=== PATIENT | female | born 1995 | race Caucasian/White ===

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

== ENCOUNTER 2017-03-07 16:17 | Emergency (ER) | payer OTHER ==
[2017-03-07 16:23] VITALS: BP 139/80; PULSE 87; RESP 20; TEMP 99.2
[2017-03-07] MEDS ORDERED: HYDROcodone/APAP 5-325MG 1 EACH TAB PO STA (16:29)
--- NOTE | 2017-03-07 16:42 | XR ---
EXAMINATION TYPE: XR finger LT DATE OF EXAM: 03/07/2017 COMPARISON: NONE HISTORY: Pain TECHNIQUE: 3 views FINDINGS: There is soft tissue swelling around the PIP joint. I see no fracture nor dislocation. IMPRESSION: Soft tissue swelling around the PIP joint of the ring finger. No fracture seen.
--- NOTE | 2017-03-07 16:59 | ED ---
Upper Extremity HPI - General Stated Complaint: Finger Injury Time Seen by Provider: 03/07/17 16:20 Source: patient Mode of arrival: ambulatory Limitations: no limitations - History of Present Illness Initial Comments: 22-year-old female patient presented to the emergency department today for evaluation of pain to the left ring finger. Patient states that around 11 this morning she got her hand stuck in the car door. She states since that she's been having swelling and pain to the finger. She states she feels some minor numbness to the tip of the finger. She states she did take Tylenol and Ultram which did not help her pain. She is currently rating her pain at a 8 out of 10 on the pain scale. She denies any other injuries. Patient denies any headache, neck pain, back pain, chest pain, shortness of breath, dizziness, weakness, abdominal pain, nausea, vomiting, or difficulties with bowel movements or urination. - Related Data Home Medications Medication Instructions Recorded Confirmed Albuterol Inhaler [Ventolin 1 - 2 puff INHALATION RT-Q6H PRN 01/07/15 03/07/17 Inhaler] traMADol HCL [Ultram] 50 mg PO Q6HR PRN 06/29/15 03/07/17 Naproxen 500 mg PO Q12HR PRN 01/07/16 03/07/17 Allergies Allergy/AdvReac Type Severity Reaction Status Date / Time codeine Allergy Unknown Verified 03/07/17 16:23 hydrocodone Allergy Vomiting Verified 03/07/17 16:41 fluticasone [From Flonase] AdvReac Unknown Verified 03/07/17 16:23 Review of Systems ROS Statement: Those systems with pertinent positive or pertinent negative responses have been documented in the HPI. ROS Other: All systems not noted in ROS Statement are negative. Past Medical History Past Medical History: Asthma Additional Past Medical History / Comment(s): migraines History of Any Multi-Drug Resistant Organisms: None Reported Past Surgical History: No Surgical Hx Reported Past Psychological History: Anxiety, Depression, PTSD Smoking Status: Never smoker Past Alcohol Use History: None Reported Past Drug Use History: None Reported General Exam Limitations: no limitations General appearance: alert, in no apparent distress, other (this is a well- developed, well-nourished, obese female patient in no acute distress. Vital signs upon presentation are temperature 99.2F, pulse 87, respirations 20, blood pressure 139/80, pulse ox 98% on room air.) Respiratory exam: Present: normal lung sounds bilaterally. Absent: respiratory distress, wheezes, rales, rhonchi, stridor Cardiovascular Exam: Present: regular rate, normal rhythm, normal heart sounds. Absent: systolic murmur, diastolic murmur, rubs, gallop, clicks Extremities exam: Present: full ROM, tenderness (left ring finger does exhibit swelling over the proximal phalanx, ecchymosis noted and a small abrasion to the lateral distal phalanx. Cap refills less than 3 seconds. Radial pulses 2+ and equal bilaterally.), normal capillary refill. Absent: pedal edema, joint swelling, calf tenderness Neurological exam: Present: alert, oriented X3, CN II-XII intact Psychiatric exam: Present: normal affect, normal mood Skin exam: Present: warm, dry, intact, normal color. Absent: rash Course Vital Signs 03/07/17 16:21 Temperature 99.2 F Pulse Rate 87 Respiratory 20 Rate Blood Pressure 139/80 O2 Sat by Pulse 98 Oximetry Medical Decision Making - Medical Decision Making 22-year-old female patient percents to the emergency department today for evaluation of injury to the left ring finger. Physical examination did reveal soft tissue swelling over the proximal phalanx. X-ray was obtained and showed no acute fracture or dislocation. Patient was offered a [place] for pain control here in the department, she refused. Patient was instructed to take Tylenol Motrin for pain control. She is instructed to apply ice and keep the hand elevated. She is instructed to follow-up with her primary care physician for recheck in 1-2 days. She is instructed to return here immediately for any new, worsening, or concerning symptoms. She verbalizes understanding and agrees with this plan. - Radiology Data Radiology results: report reviewed, image reviewed 3 views of the left ring finger shows soft tissue swelling around the PIP joint. I see no fracture nor dislocation. Impression by Dr. Sheldon shows soft tissue swelling around the PIP joint of the ring finger. No fracture seen. Disposition Clinical Impression: Finger contusion Disposition: HOME SELF-CARE Condition: Good Instructions: Contusion in Adults (ED) Additional Instructions: Rest, ice, elevate the finger. Continue taking ibuprofen and Tylenol for pain control. Follow-up with your primary care physician for recheck in 1-2 days. Return here immediately for any new, worsening, or concerning symptoms. Referrals: Marc Calderon DO [Primary Care Provider] - 1-2 days Time of Disposition: 17:00
== END 2017-03-07 17:08 | disposition home or self-care (01) ==
LOC: EC 16:17
DX: S60.042A Contusion of left ring finger without damage to nail, initial encounter (principal); E66.9 Obesity, unspecified; Z88.5 Allergy status to narcotic agent; Z68.41 Body mass index [BMI] 40.0-44.9, adult; Z88.8 Allergy status to other drugs, medicaments and biological substances; W22.8XXA Striking against or struck by other objects, initial encounter
CPT/HCPCS: 99283

== ENCOUNTER → 2017-04-08 | Outpatient (CLI) | payer OTHER ==
--- NOTE | 2017-04-08 12:30 | PN ---
PROGRESS NOTE DATE OF SERVICE: 04/08/2017 A 22-year-old lady who has been re-evaluated in the [facility] for possible obstructive sleep apnea-hypopnea syndrome. I saw patient about one year ago. At that time, she was recommended to proceed with the sleep study, but because of family issues at that time, she was not able to do it. Presently, her sleep schedule from around 10:30 or 11 pm until 6:45 - 7:45 am. She still snores, but possibly slightly less than about 1 year ago. She wakes up several times from sleep with nocturia. [place] Sleepiness Scale is 8. Patient continued to have problem with the memory and several trials for the last year was not successful. MEDICATIONS: Lamotrigine, Nexplanon implant, Nytol, tramadol, naproxen. PHYSICAL EXAM: A 22-year-old lady without distress. BP 152/84, HR 98, RR 16, height 5, 9- 1/2, weight 331, BMI 48, temp 98, oxygen saturation at room air 98%. OROPHARYNX: Low position of soft palate. ABDOMEN: Obese. Neck Supple, no JVD. Thyroid is not palpable. LUNGS Clear to percussion and to auscultation. Good air exchange. No wheezing or rhonchi. HEART S1, S2 regular. No murmurs, gallops, or rubs. EXTREMITIES No clubbing or cyanosis. 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 Cranial nerves 2 to 7 intact. There is no fasciculation or atrophy. noted. No focal deficits observed. ASSESSMENT: 1. Snoring, multiple awakenings from sleep with nocturia, low position of soft palate, obesity, obstructive sleep apnea-hypopnea syndrome. 2. Migraines. 3. Memory problems. 4. Hypertension in the office today. 5. History of bilateral hip dysplasia. 6. History of asthma. PLAN: 1. Polysomnogram for evaluation of patient's breathing during the sleep. 2. CPAP titration if sleep study will be positive for obstructive sleep apnea-hypopnea syndrome. 3. Aggressive losing weight program. 4. Sleep hygiene with regular time in bed for at least 7-1/2 - 8 hours. 5. No driving if feeling any sleepiness. Thank you very much for allowing me to participate in the management of your patient. Sincerely, Immanuel Brar MD, PhD, FAASM Diplomat of [place] [employer] [place] [employer] Electrical Technology Instructor of [facility] [place] MMODL / UNAN: [id number] /
== END | disposition home or self-care (01) ==
LOC: SLEEP 10:58
PROVIDERS: ATTEND Internal Medicine
DX: G47.33 Obstructive sleep apnea (adult) (pediatric) (principal)

== ENCOUNTER → 2017-05-20 | Outpatient (CLI) | payer OTHER ==
--- NOTE | 2017-05-20 17:04 | PN ---
PROGRESS NOTE DATE OF SERVICE: 05/20/2017 22-year-old lady who has been followed in Sleep Center to discuss results of polysomnogram and plan of the treatment. I discussed results of polysomnogram with the patient in details. She has mild abnormalities of respiration. Apnea-hypopnea index 10.0, in REM sleep AHI significantly high 24.8. At the same time she denied any significant amount of awakenings from sleep at the present time or any significant excessive daytime sleepiness. [place] Sleepiness Scale is 8. MEDICATIONS: Lamotrigine, , Medrol, tramadol, naproxen. PHYSICAL EXAM: GENERAL Patient in no distress. VITAL SIGNS BP 119/80, HR 75, RR 16, oxygen saturation at room air 100%, temperature 98.8. HEENT PERRLA, EOMI, evaluation of oropharynx showed moderately low position of soft palate. NECK Supple, no JVD. Thyroid is not palpable. LUNGS Clear to percussion and to auscultation. Good air exchange. No wheezing or rhonchi. HEART S1, S2 regular. No murmurs, gallops, or rubs. ABDOMEN Obese. Soft and nontender. Bowel sounds are present. No organomegaly appreciated. EXTREMITIES No clubbing or cyanosis. 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 Cranial nerves 2 to 7 intact. There is no fasciculation or atrophy. noted. No focal deficits observed. IMPRESSION: 1. Mild obstructive sleep apnea-hypopnea syndrome. 2. Migraines. 3. History of asthma. 4. Memory problems. 5. History of bilateral hip dysplasia. PLAN: 1. From my view, patient should have treatment with CPAP, but is not indicated following present recommendations. The patient does not have any cardiac problems or mood disorder. Presence of migraine is not considered to be indication for treatment of mild obstructive sleep apnea, although for many patients treatment with CPAP is helpful. Also patient has some memory problems and I think that again treatment with CPAP will be useful for her. At the same time, she prefers not to start treatment with CPAP. 2. Aggressive losing weight programs. 3. Sleep hygiene with regular time in bed for at least 8 hours. 4. Preferable position during the sleep on the side. 5. No driving if feeling sleepiness. 6. Follow-up visit in 1 year or earlier if patient feels necessary. Thank you very much for allowing me to participate in management of your patient. Sincerely, Immanuel Brar MD, PhD, FAASM Diplomat of [place] [employer] [place] [employer] Machining Supervisor of [facility] [place] MMDARRON / NORA: [id number] /
== END | disposition home or self-care (01) ==
LOC: SLEEP 15:39
PROVIDERS: ATTEND Internal Medicine
DX: G47.33 Obstructive sleep apnea (adult) (pediatric) (principal); R41.3 Other amnesia; G43.909 Migraine, unspecified, not intractable, without status migrainosus; J45.909 Unspecified asthma, uncomplicated; Z79.899 Other long term (current) drug therapy; Z79.891 Long term (current) use of opiate analgesic; Z79.52 Long term (current) use of systemic steroids; Z87.39 Personal history of other diseases of the musculoskeletal system and connective tissue

== ENCOUNTER 2017-08-05 19:39 | Emergency (ER) | payer OTHER ==
[2017-08-05] MEDS ORDERED: METOCLOPRAMIDE 5 MG/ML 2 ML VIAL IVP STA (21:17)
[2017-08-05] MEDS ORDERED: diphenhydrAMINE 50 MG/ML 1 ML VIAL IVP STA (21:17)
[2017-08-05] MEDS ORDERED: SODIUM CHLORIDE 0.9% 500 ML IV STA (21:17)
[2017-08-05] MEDS ORDERED: KETOROLAC 30 MG/ML 1 ML VIAL IVP STA (21:17)
--- NOTE | 2017-08-05 21:31 | ED ---
Headache HPI - General Chief Complaint: Headache Stated Complaint: migraine Time Seen by Provider: 08/05/17 20:59 Mode of arrival: ambulatory Limitations: no limitations - History of Present Illness Initial Comments: This patient is a 22-year-old woman who presents to be evaluated for headache. She states that she has been getting headaches for approximately 3 years and that she has been seen by Dr. Jewell Freeman from neurology and also the [facility]. She has had workup that included 2 previous lumbar punctures that she states not eliminated pseudotumor cerebri and other conditions. She states that today's headache came on between 1 and 2 PM. She was at rest at the time and the headache gradually built up. She states that she tried her home medications around 3 PM but they didn't help much. She indicates that the headache is similar to her usual headaches though she does have nausea and vomiting associated with this one. She has not had any neurologic symptoms. She does not have neck pain or stiffness. No fever or chills. MD Complaint: headache Onset/Timin -: hour(s) Onset Description: gradual Location: left, temporal Severity: severe Quality: aching Consistency: constant Improves With: nothing Worsens With: none Context: occurred at rest Associated Symptoms: nausea, vomiting Treatments Prior to Arrival: prescription analgesic (Tramadol), other (Naproxen) - Related Data Home Medications Medication Instructions Recorded Confirmed traMADol HCL [Ultram] 50 mg PO Q6HR PRN 06/29/15 08/05/17 Naproxen 500 mg PO Q12HR PRN 01/07/16 08/05/17 Nadolol [Corgard] 40 mg PO DAILY 08/05/17 08/05/17 Phentermine HCl [Adipex-P] 18.75 mg PO QAM 08/05/17 08/05/17 lamoTRIgine [LaMICtal] 25 mg PO HS 08/05/17 08/05/17 Allergies Allergy/AdvReac Type Severity Reaction Status Date / Time codeine Allergy Unknown Verified 08/05/17 20:49 hydrocodone Allergy Vomiting Verified 08/05/17 20:49 fluticasone [From Flonase] AdvReac Unknown Verified 08/05/17 20:49 Review of Systems ROS Statement: Those systems with pertinent positive or pertinent negative responses have been documented in the HPI. ROS Other: All systems not noted in ROS Statement are negative. Constitutional: Denies: fever, chills, weakness Eyes: Denies: eye pain, vision change ENT: Denies: ear pain, hearing loss, congestion Respiratory: Denies: cough Gastrointestinal: Reports: nausea, vomiting Genitourinary: Denies: dysuria Musculoskeletal: Denies: back pain Skin: Denies: rash Neurological: Reports: headache. Denies: weakness, numbness, confusion, abnormal gait Past Medical History Past Medical History: Asthma Additional Past Medical History / Comment(s): migraines History of Any Multi-Drug Resistant Organisms: None Reported Past Surgical History: No Surgical Hx Reported Past Psychological History: Anxiety, Depression, PTSD Smoking Status: Never smoker Past Alcohol Use History: None Reported Past Drug Use History: None Reported General Exam Limitations: no limitations General appearance: alert, in no apparent distress, obese Head exam: Present: atraumatic, normocephalic Eye exam: Present: normal appearance, PERRL, EOMI. Absent: scleral icterus, conjunctival injection ENT exam: Present: normal oropharynx, mucous membranes moist, TM's normal bilaterally, normal external ear exam Neck exam: Present: normal inspection, full ROM. Absent: meningismus Neurological exam: Present: alert, oriented X3, CN II-XII intact. Absent: motor sensory deficit Skin exam: Present: warm, dry, intact, normal color. Absent: rash Course Vital Signs 08/05/17 08/05/17 19:51 22:45 Temperature 97.4 F L 97.9 F Pulse Rate 67 82 Respiratory 20 18 Rate Blood Pressure 133/82 125/81 O2 Sat by Pulse 99 98 Oximetry Disposition Clinical Impression: Headache Disposition: HOME SELF-CARE Condition: Good Instructions: Acute Headache (ED) Is patient prescribed a controlled substance at d/c from ED?: No Referrals: Marc Calderon DO [Primary Care Provider] - 1-2 days
[2017-08-05 22:46] VITALS: BP 125/81; PULSE 82; RESP 18; TEMP 97.9
== END 2017-08-05 22:45 | disposition home or self-care (01) ==
LOC: EC 19:39
DX: R51 Headache (principal); R11.2 Nausea with vomiting, unspecified; F32.9 Major depressive disorder, single episode, unspecified; F41.9 Anxiety disorder, unspecified; F43.10 Post-traumatic stress disorder, unspecified; Z79.899 Other long term (current) drug therapy; Z88.5 Allergy status to narcotic agent; Z88.8 Allergy status to other drugs, medicaments and biological substances
CPT/HCPCS: 99283; 96374; 96375 ×2; 96361; J1200; J2765; J1885

== ENCOUNTER → 2017-10-23 | Outpatient (CLI) | payer OTHER ==
--- NOTE | 2017-10-23 14:17 | XR ---
EXAMINATION TYPE: XR shoulder complete LT DATE OF EXAM: 10/23/2017 CLINICAL HISTORY: Left shoulder pain TECHNIQUE: Three views of the left shoulder are obtained. COMPARISON: None. FINDINGS: There is no acute fracture/dislocation evident in the left shoulder. The acromioclavicula r and glenohumeral joint spaces appear within normal limits. The visualized ribs are intact and unre markable. There is a suspected small joint effusion seen cranial and lateral to the left shoulder on the frontal and internal rotation views. IMPRESSION: Suspect a small joint effusion with no acute fracture or dislocation in the left shoulder .
== END | disposition home or self-care (01) ==
LOC: RADXRMAIN 10:52
PROVIDERS: ATTEND Physician Assistant
DX: M25.512 Pain in left shoulder (principal)

== ENCOUNTER 2018-05-05 19:00 | Emergency (ER) | payer OTHER ==
[2018-05-05 19:21] VITALS: BP 136/87; PULSE 85; RESP 19; TEMP 99
[2018-05-05] MEDS ORDERED: IBUPROFEN 600 MG TAB PO STA (19:44)
[2018-05-05] MEDS ORDERED: ACETAMINOPHEN TAB 500 MG TAB PO STA (19:44)
--- NOTE | 2018-05-05 19:47 | ED ---
Upper Extremity HPI - General Chief Complaint: Extremity Injury, Upper Stated Complaint: Lt Hand Injury Time Seen by Provider: 05/05/18 19:23 Source: patient Mode of arrival: ambulatory Limitations: no limitations - History of Present Illness Initial Comments: 23-year-old female patient presents to the emergency department today for evaluation of left hand pain. Patient states that hour ago she was letting her dog out with the leash wrapped around her hand. She states that the dog lunged at another animal and the leash pulled her hand. Patient states it is been painful since pits that she is having the most pain to the third and fourth digits. Take that she is able to move them however the pain is severe. She denies any numbness or tingling to the hand. She denies any history of injury to the hand. She denies any wrist or elbow pain. She did not fall or have any other injuries during the incident. States she is up-to-date on her tetanus vaccine. Patient denies any headache, neck pain, back pain, chest pain, shortness of breath, dizziness, weakness, abdominal pain, nausea, vomiting, or difficulties with bowel movements or urination. - Related Data Home Medications Medication Instructions Recorded Confirmed traMADol HCL [Ultram] 50 mg PO DAILY PRN 06/29/15 05/05/18 Naproxen 500 mg PO Q12HR PRN 01/07/16 05/05/18 Phentermine HCl [Adipex-P] 18.75 mg PO QAM PRN 08/05/17 05/05/18 Albuterol Inhaler [Ventolin Hfa 1 - 2 puff INHALATION RT-Q6H PRN 05/05/18 Inhaler] Cyclobenzaprine [Flexeril] 10 mg PO TID PRN 05/05/18 05/05/18 Nadolol [Corgard] 20 mg PO DAILY 05/05/18 05/05/18 lamoTRIgine [LaMICtal Xr] 50 mg PO DAILY 05/05/18 05/05/18 Previous Rx's Medication Instructions Recorded Ibuprofen [Motrin] 600 mg PO Q8HR PRN #30 tab 05/05/18 Allergies Allergy/AdvReac Type Severity Reaction Status Date / Time codeine Allergy Unknown Verified 05/05/18 20:02 hydrocodone Allergy Vomiting Verified 05/05/18 20:02 fluticasone [From Flonase] AdvReac Unknown Verified 05/05/18 20:02 Review of Systems ROS Statement: Those systems with pertinent positive or pertinent negative responses have been documented in the HPI. ROS Other: All systems not noted in ROS Statement are negative. Past Medical History Past Medical History: Asthma Additional Past Medical History / Comment(s): migraines History of Any Multi-Drug Resistant Organisms: None Reported Past Surgical History: No Surgical Hx Reported Past Psychological History: Anxiety, Depression, PTSD Smoking Status: Never smoker Past Alcohol Use History: Occasional Past Drug Use History: None Reported General Exam Limitations: no limitations General appearance: alert, in no apparent distress, other (This is a well- developed, well-nourished adult female patient in no acute distress. Vital signs upon presentation are temperature 99.0F, pulse 85, respirations 19, blood pressure 136/87, pulse ox 98% on room air.) Respiratory exam: Present: normal lung sounds bilaterally. Absent: respiratory distress, wheezes, rales, rhonchi, stridor Cardiovascular Exam: Present: regular rate, normal rhythm, normal heart sounds. Absent: systolic murmur, diastolic murmur, rubs, gallop, clicks Extremities exam: Present: full ROM, tenderness (Tenderness over the third and fourth digits on the left hand. Patient does have small abrasion noted to the proximal nail fold on the left ring finger. There is also a small subungual hematoma to this finger. Fingers are edematous. No deformity noted. Skin is otherwise pink, warm, dry. Cap refills less than 3 seconds. Radial pulses 2+ and equal bilaterally.), normal capillary refill. Absent: normal inspection, pedal edema, joint swelling, calf tenderness Neurological exam: Present: alert, oriented X3, CN II-XII intact Psychiatric exam: Present: normal affect, normal mood Skin exam: Present: warm, dry, intact, normal color. Absent: rash Course Vital Signs 05/05/18 19:18 Temperature 99 F Pulse Rate 85 Respiratory 19 Rate Blood Pressure 136/87 O2 Sat by Pulse 98 Oximetry Medical Decision Making - Medical Decision Making 23-year-old female patient presents to emergency department today for evaluation of left hand pain specifically in her third and fourth digits. Physical examination did reveal good neurovascular status. Patient fully range of motion. She did have small abrasion and subungual hematoma to the ring finger. X-ray of the hand was negative for any evidence of acute fractures or dislocations. I did discuss findings with the patient. Symptoms are consistent with a hand sprain. She'll be given Dario wrap and anti-inflammatory medication. She is instructed to follow-up with her primary care physician for recheck in 1-2 days. She is instructed to have repeat x-rays performed in 7-10 days if pain symptoms persist. Return parameters were discussed in detail. She verbalizes understanding and agrees with this plan. - Radiology Data Radiology results: report reviewed, image reviewed 3 views of the left hand are obtained. Report was reviewed in its entirety. Impression by Dr. Sheldon shows negative left hand exam. Disposition Clinical Impression: Sprain of left hand Disposition: HOME SELF-CARE Condition: Good Instructions: Hand Sprain (ED) Additional Instructions: Use Dario wrap for comfort and support. Take ibuprofen as needed for pain. Have repeat x-rays performed in 7-10 days if pain symptoms persist. Follow-up with the primary care physician for recheck in 1-2 days. Return immediately for any new, worsening, or concerning symptoms. Prescriptions: Ibuprofen [Motrin] 600 mg PO Q8HR PRN #30 tab PRN Reason: Pain Is patient prescribed a controlled substance at d/c from ED?: No Referrals: Marc Calderon DO [Primary Care Provider] - 1-2 days Time of Disposition: 20:26
--- NOTE | 2018-05-05 20:20 | XR ---
EXAMINATION TYPE: XR hand complete LT DATE OF EXAM: 05/05/2018 COMPARISON: NONE HISTORY: Pain and injury TECHNIQUE: 3 views FINDINGS: I see no fracture nor dislocation. Metacarpals are intact. There are no erosions. Joint spa marco are normal. IMPRESSION: Negative left hand exam.
== END 2018-05-05 20:38 | disposition home or self-care (01) ==
LOC: EC 19:00
DX: S63.92XA Sprain of unspecified part of left wrist and hand, initial encounter (principal); S60.142A Contusion of left ring finger with damage to nail, initial encounter; J45.909 Unspecified asthma, uncomplicated; F32.9 Major depressive disorder, single episode, unspecified; F41.9 Anxiety disorder, unspecified; Z88.5 Allergy status to narcotic agent; Z88.8 Allergy status to other drugs, medicaments and biological substances; Z79.899 Other long term (current) drug therapy; X50.9XXA Other and unspecified overexertion or strenuous movements or postures, initial encounter; Y93.89 Activity, other specified
CPT/HCPCS: 99283

== ENCOUNTER 2018-08-19 21:23 | Emergency (ER) | payer OTHER ==
[2018-08-19 21:30] VITALS: BP 133/81; PULSE 94; RESP 18; TEMP 98.8
[2018-08-19] MEDS ORDERED: FAMOTIDINE 20 MG TAB PO STA (21:55)
[2018-08-19] MEDS ORDERED: methylPREDNISolone SOD SUCCI 125 MG/2 ML VIAL IM ONE (21:55)
--- NOTE | 2018-08-19 21:55 | ED ---
Skin/Abscess/FB HPI - General Source: patient Mode of arrival: ambulatory Limitations: no limitations <Farrah Linares - Last Filed: 08/20/18 02:06> <Pricila Alvarado - Last Filed: 08/20/18 03:09> - General Chief complaint: Skin/Abscess/Foreign Body Stated complaint: RASH Time Seen by Provider: 08/19/18 21:32 - History of Present Illness Initial comments: 23-year-old female patient presents to the emergency department today for evaluation of rash. Patient states 2 days ago she developed hives to her hands, legs, and she found after cleaning someone's home. Patient states that she did see her primary care physician was given a dose of Benadryl and started on a Medrol Dosepak. Patient states that most the rash has resolved however she did develop increasing rash to her trunk especially under her breast area. Patient states her hands seemed to be worse as well. Patient states she has been taking Benadryl at home and doesn't seem to be working. Patient denies any known ALLERGIES other than her listed ALLERGY to codeine, hydrocodone, and fluticasone. Patient denies any lip or tongue swelling. Denies any shortness of breath or wheezing. Patient denies any fevers or chills. Patient denies any recent chest pain, abdominal pain, nausea, vomiting, diarrhea, constipation, back pain, numbness, tingling, dizziness, weakness, hematuria, dysuria, urinary urgency, urinary frequency, headache, visual changes, or any other complaints. (Farrah Linares) - Related Data Home Medications Medication Instructions Recorded Confirmed traMADol HCL [Ultram] 50 mg PO DAILY PRN 06/29/15 08/19/18 Naproxen 500 mg PO Q12HR PRN 01/07/16 08/19/18 Phentermine HCl [Adipex-P] 18.75 mg PO QAM PRN 08/05/17 08/19/18 Albuterol Inhaler [Ventolin Hfa 1 - 2 puff INHALATION RT-Q6H PRN 05/05/18 08/19/18 Inhaler] Cyclobenzaprine [Flexeril] 10 mg PO TID PRN 05/05/18 08/19/18 Nadolol [Corgard] 20 mg PO DAILY 05/05/18 08/19/18 lamoTRIgine [LaMICtal Xr] 50 mg PO DAILY 05/05/18 08/19/18 Omeprazole 20 mg PO DAILY 08/19/18 08/19/18 methylPREDNISolone [Medrol Dose See Taper PO DIRECTED 08/19/18 08/19/18 Pack] Previous Rx's Medication Instructions Recorded Ibuprofen [Motrin] 600 mg PO Q8HR PRN #30 tab 05/05/18 Famotidine [Pepcid] 20 mg PO DAILY #5 tablet 08/19/18 predniSONE 50 mg PO DAILY #5 tablet 08/19/18 Allergies Allergy/AdvReac Type Severity Reaction Status Date / Time codeine Allergy Unknown Verified 08/19/18 22:00 hydrocodone Allergy Vomiting Verified 08/19/18 22:00 fluticasone [From Flonase] AdvReac Unknown Verified 08/19/18 22:00 Review of Systems ROS Other: All systems not noted in ROS Statement are negative. <Farrah Linares - Last Filed: 08/20/18 02:06> ROS Other: All systems not noted in ROS Statement are negative. <Pricila Alvarado - Last Filed: 08/20/18 03:09> ROS Statement: Those systems with pertinent positive or pertinent negative responses have been documented in the HPI. Past Medical History Past Medical History: Asthma Additional Past Medical History / Comment(s): migraines History of Any Multi-Drug Resistant Organisms: None Reported Past Surgical History: No Surgical Hx Reported Past Psychological History: Anxiety, Depression, PTSD Smoking Status: Never smoker Past Alcohol Use History: Occasional Past Drug Use History: None Reported <Farrah Linares - Last Filed: 08/20/18 02:06> General Exam Limitations: no limitations General appearance: alert, in no apparent distress, other (This is a well- developed, well-nourished adult female patient in no acute distress. Vital signs upon presentation are temperature 98.8F, pulse 94, respirations 18, blood pressure 133/81, pulse ox 96% on room air.) Eye exam: Present: normal appearance, PERRL, EOMI. Absent: scleral icterus, conjunctival injection, periorbital swelling ENT exam: Present: normal exam, normal oropharynx, mucous membranes moist Respiratory exam: Present: normal lung sounds bilaterally. Absent: respiratory distress, wheezes, rales, rhonchi, stridor Cardiovascular Exam: Present: regular rate, normal rhythm, normal heart sounds. Absent: systolic murmur, diastolic murmur, rubs, gallop, clicks GI/Abdominal exam: Present: soft, normal bowel sounds. Absent: distended, tenderness, guarding, rebound, rigid Neurological exam: Present: alert, oriented X3, CN II-XII intact Psychiatric exam: Present: normal affect, normal mood Skin exam: Present: warm, dry, intact, normal color, rash (Urticarial type rash noted to the bilateral hands, and the area beneath the bilateral breasts. Rash is erythematous but no surrounding erythema. Rash is non-petechial, nonvesicular.) <Farrah Linares - Last Filed: 08/20/18 02:06> Course Vital Signs 08/19/18 21:27 Temperature 98.8 F Pulse Rate 94 Respiratory 18 Rate Blood Pressure 133/81 O2 Sat by Pulse 96 Oximetry Medical Decision Making <Farrah Linares - Last Filed: 08/20/18 02:06> <Pricila Alvarado - Last Filed: 08/20/18 03:09> - Medical Decision Making 23-year-old female patient presents to emergency department today for evaluation of rash. Physical examination does reveal urticarial type rash to the area beneath bilateral breast into the hands. Lungs are clear to auscultation with good air movement. She is breathing without difficulty. Patient is currently taking a Medrol Dosepak. We will increased dosage of steroids will do 50 mg prednisone for the next 5 days. She is instructed to continue taking Benadryl and also start Pepcid. She is instructed to follow up with her primary care physician for recheck in 1-2 days. Return parameters discussed in detail. She verbalizes understanding and agrees this plan. (Farrah Linares) I was available for consultation in the emergency department. The history and physical exam were done by the midlevel provider. I was consulted for this patient's care. I reviewed the case with the midlevel provider and based on their presentation of the patient, I agree with the assessment, medical decision making and plan of care as documented. Chart was dictated using [employer] dictation software. Attempts were made to correct any dictation errors however some typographical errors may persist. (Pricila Alvarado) Disposition Is patient prescribed a controlled substance at d/c from ED?: No Time of Disposition: 21:54 <Farrah Linares - Last Filed: 08/20/18 02:06> <Pricila Alvarado - Last Filed: 08/20/18 03:09> Clinical Impression: Urticaria Disposition: HOME SELF-CARE Condition: Good Instructions (If sedation given, give patient instructions): Urticaria (ED) Additional Instructions: Apply cool compresses to the painful itchy areas. Follow-up with your primary care physician for recheck as soon as possible. Take medications as directed. Return to the emergency department immediately for any new, worsening, or concerning symptoms. Prescriptions: Famotidine [Pepcid] 20 mg PO DAILY #5 tablet predniSONE 50 mg PO DAILY #5 tablet Referrals: Marc Calderon DO [Primary Care Provider] - 1-2 days
== END 2018-08-19 22:16 | disposition home or self-care (01) ==
LOC: EC 21:23
DX: L50.9 Urticaria, unspecified (principal); J45.909 Unspecified asthma, uncomplicated; Z79.52 Long term (current) use of systemic steroids; Z79.899 Other long term (current) drug therapy; Z88.5 Allergy status to narcotic agent; Z88.8 Allergy status to other drugs, medicaments and biological substances
CPT/HCPCS: 99282; 96372; J2930

== ENCOUNTER → 2018-09-23 | Outpatient (CLI) | payer OTHER ==
--- NOTE | 2018-09-23 11:48 | USB ---
Reason for exam: clinical finding. Physical Findings: Nurse Summary: 7 weeks ago hives all over body, exposed to chemicals. Nurse did not find any significant physical abnormalities on exam (nurse radha). US Breast BILAT Right complete breast ultrasound includes all four quadrants, the retroareolar region and axilla. Finding demonstrates no cystic or solid lesion seen. Left complete breast ultrasound includes all four quadrants, the retroareolar region and axilla. Finding demonstrates no cystic or solid lesion seen. No suspicious abnormality. These results were verbally communicated with the patient and result sheet given to the patient on 09/23/18. ASSESSMENT: Negative, BI-RAD 1 RECOMMENDATION: Routine screening mammogram of both breasts at age 42. (or sooner if clinically indicated)
== END | disposition home or self-care (01) ==
LOC: RADUSWWP 07:01
PROVIDERS: ATTEND Obstetrics & Gynecology
DX: N64.4 Mastodynia (principal)

== ENCOUNTER 2019-10-09 22:30 | Emergency (ER) | payer OTHER ==
[2019-10-09 22:48] VITALS: RESP 18
[2019-10-09] MEDS ORDERED: SODIUM CHLORIDE 0.9% 500 ML 500 ML IV STA (23:30)
--- NOTE | 2019-10-09 23:36 | ED ---
Female Urogenital HPI - General Chief complaint: Vaginal Bleeding Stated complaint: Vaginal Bleeding Time Seen by Provider: 10/09/19 23:00 Source: patient Mode of arrival: ambulatory Limitations: no limitations - History of Present Illness Initial comments: This patient is a 24-year-old woman who presents to be evaluated for vaginal bleeding. She states that this has been going on since September 21. She states that she started having some spotting following vigorous sexual activity. She states that since that time she has had more or less daily spotting and the flow is been variable there have been occasions when she has saturated a pad in 45 minutes while other times only spotting. Patient also has a little bit of pelvic cramping that has come and gone as well. She does not believe she is she has had a double shot. Patient sees Dr. Moraes from gynecology. She has not had signs or symptoms of anemia. No chest pain or dyspnea. No lightheadedness, palpitations, or syncope. MD Complaint: vaginal bleeding Onset/Timin -: days(s) Radiation: suprapubic Severity: mild Quality: cramping Consistency: intermittent Improves with: none Worsens with: none Patient : No - Related Data Home Medications Medication Instructions Recorded Confirmed traMADol HCL [Ultram] 50 mg PO DAILY PRN 06/29/15 08/19/18 Naproxen 500 mg PO Q12HR PRN 01/07/16 08/19/18 Phentermine HCl [Adipex-P] 18.75 mg PO QAM PRN 08/05/17 08/19/18 Albuterol Inhaler (Mhu) [Ventolin 1 - 2 puff INHALATION RT-Q6H PRN 05/05/18 08/19/18 Hfa Inhaler] Cyclobenzaprine [Flexeril] 10 mg PO TID PRN 05/05/18 08/19/18 Nadolol [Corgard] 20 mg PO DAILY 05/05/18 08/19/18 lamoTRIgine [LaMICtal Xr] 50 mg PO DAILY 05/05/18 08/19/18 Omeprazole 20 mg PO DAILY 08/19/18 08/19/18 methylPREDNISolone [Medrol Dose See Taper PO DIRECTED 08/19/18 08/19/18 Pack] Previous Rx's Medication Instructions Recorded Ibuprofen [Motrin] 600 mg PO Q8HR PRN #30 tab 05/05/18 Famotidine [Pepcid] 20 mg PO DAILY #5 tablet 08/19/18 predniSONE 50 mg PO DAILY #5 tablet 08/19/18 Allergies Allergy/AdvReac Type Severity Reaction Status Date / Time codeine Allergy Unknown Verified 10/09/19 22:48 hydrocodone Allergy Vomiting Verified 10/09/19 22:48 fluticasone [From Flonase] AdvReac Unknown Verified 10/09/19 22:48 Review of Systems ROS Statement: Those systems with pertinent positive or pertinent negative responses have been documented in the HPI. ROS Other: All systems not noted in ROS Statement are negative. Constitutional: Denies: fever, chills Respiratory: Denies: cough, dyspnea Cardiovascular: Denies: chest pain, palpitations Gastrointestinal: Denies: abdominal pain, vomiting, diarrhea Genitourinary: Reports: abnormal menses. Denies: dysuria, hematuria Musculoskeletal: Denies: back pain Skin: Denies: rash Neurological: Denies: headache, weakness Hematological/Lymphatic: Denies: easy bleeding Past Medical History Past Medical History: Asthma Additional Past Medical History / Comment(s): migraines History of Any Multi-Drug Resistant Organisms: None Reported Past Surgical History: No Surgical Hx Reported Past Psychological History: Anxiety, Depression, PTSD Smoking Status: Never smoker Past Alcohol Use History: Occasional Past Drug Use History: None Reported General Exam Limitations: no limitations General appearance: alert, in no apparent distress ENT exam: Present: normal oropharynx Respiratory exam: Present: normal lung sounds bilaterally. Absent: respiratory distress, wheezes, rales, rhonchi, stridor Cardiovascular Exam: Present: regular rate, normal rhythm, normal heart sounds. Absent: systolic murmur, diastolic murmur, rubs, gallop GI/Abdominal exam: Present: soft. Absent: distended, tenderness, guarding, rebound, rigid, mass Extremities exam: Present: normal inspection, normal capillary refill. Absent: pedal edema, calf tenderness Back exam: Present: normal inspection. Absent: CVA tenderness (R), CVA tenderness (L) Neurological exam: Present: alert Skin exam: Present: warm, dry, intact, normal color. Absent: rash Course Vital Signs 10/09/19 22:44 Temperature 99.2 F Pulse Rate 111 H Respiratory 18 Rate Blood Pressure 168/86 O2 Sat by Pulse 98 Oximetry Medical Decision Making - Lab Data Result diagrams: 10/09/19 23:45 10/09/19 23:45 Lab Results 10/09/19 10/09/19 10/09/19 Range/Units 22:26 23:21 23:45 WBC 9.1 (3.8-10.6) k/uL RBC 4.89 (3.80-5.40) m/uL Hgb 12.4 (11.4-16.0) gm/dL Hct 38.9 (34.0-46.0) % MCV 79.4 L (80.0-100.0) fL MCH 25.3 (25.0-35.0) pg MCHC 31.9 (31.0-37.0) g/dL RDW 14.1 (11.5-15.5) % Plt Count 288 (150-450) k/uL Neutrophils % 58 % Lymphocytes % 32 % Monocytes % 6 % Eosinophils % 3 % Basophils % 0 % Neutrophils # 5.3 (1.3-7.7) k/uL Lymphocytes # 2.9 (1.0-4.8) k/uL Monocytes # 0.5 (0-1.0) k/uL Eosinophils # 0.2 (0-0.7) k/uL Basophils # 0.0 (0-0.2) k/uL Hypochromasia Slight Sodium (137-145) mmol/L Potassium (3.5-5.1) mmol/L Chloride (98-107) mmol/L Carbon Dioxide (22-30) mmol/L Anion Gap mmol/L BUN (7-17) mg/dL Creatinine (0.52-1.04) mg/dL Est GFR (CKD-EPI)AfAm (>60 ml/min/1.73 sqM) Est GFR (CKD-EPI)NonAf (>60 ml/min/1.73 sqM) Glucose (74-99) mg/dL Calcium (8.4-10.2) mg/dL Urine Color Brown Urine Appearance Bloody H (Clear) Urine pH 6.0 (5.0-8.0) Ur Specific [place] 1.030 (1.001-1.035) Urine Protein 3+ H (Negative) Urine Glucose (UA) Negative (Negative) Urine Ketones 1+ H (Negative) Urine Blood Large (Negative) Urine Nitrite Negative (Negative) Urine Bilirubin 3+ H (Negative) Urine Urobilinogen 2.0 (<2.0) mg/dL Ur Leukocyte Esterase Small (Negative) Urine RBC >182 H (0-5) /hpf Urine WBC 96 H (0-5) /hpf Ur Squamous Epith Cells 65 H (0-4) /hpf Urine Bacteria Occasional H (None) /hpf Urine Mucus Many H (None) /hpf Urine HCG, Qual Not Detected (Not Detectd) 10/09/19 Range/Units 23:45 WBC (3.8-10.6) k/uL RBC (3.80-5.40) m/uL Hgb (11.4-16.0) gm/dL Hct (34.0-46.0) % MCV (80.0-100.0) fL MCH (25.0-35.0) pg MCHC (31.0-37.0) g/dL RDW (11.5-15.5) % Plt Count (150-450) k/uL Neutrophils % % Lymphocytes % % Monocytes % % Eosinophils % % Basophils % % Neutrophils # (1.3-7.7) k/uL Lymphocytes # (1.0-4.8) k/uL Monocytes # (0-1.0) k/uL Eosinophils # (0-0.7) k/uL Basophils # (0-0.2) k/uL Hypochromasia Sodium 137 (137-145) mmol/L Potassium 4.0 (3.5-5.1) mmol/L Chloride 106 (98-107) mmol/L Carbon Dioxide 21 L (22-30) mmol/L Anion Gap 10 mmol/L BUN 12 (7-17) mg/dL Creatinine 0.71 (0.52-1.04) mg/dL Est GFR (CKD-EPI)AfAm >90 (>60 ml/min/1.73 sqM) Est GFR (CKD-EPI)NonAf >90 (>60 ml/min/1.73 sqM) Glucose 101 H (74-99) mg/dL Calcium 9.5 (8.4-10.2) mg/dL Urine Color Urine Appearance (Clear) Urine pH (5.0-8.0) Ur Specific [place] (1.001-1.035) Urine Protein (Negative) Urine Glucose (UA) (Negative) Urine Ketones (Negative) Urine Blood (Negative) Urine Nitrite (Negative) Urine Bilirubin (Negative) Urine Urobilinogen (<2.0) mg/dL Ur Leukocyte Esterase (Negative) Urine RBC (0-5) /hpf Urine WBC (0-5) /hpf Ur Squamous Epith Cells (0-4) /hpf Urine Bacteria (None) /hpf Urine Mucus (None) /hpf Urine HCG, Qual (Not Detectd) Disposition Clinical Impression: Dysfunctional uterine bleeding Disposition: HOME SELF-CARE Condition: Good Instructions (If sedation given, give patient instructions): Dysmenorrhea (ED) Is patient prescribed a controlled substance at d/c from ED?: No Referrals: Marc Calderon DO [Primary Care Provider] - 1-2 days Sun Moraes MD [REFERRING] - 1-2 days
[2019-10-09 23:40] LABS: Bacteria,Urine Occasional /hpf; Mucus,Urine Many /hpf; RBC,Urine >182 /hpf (0-5); Squamous Epithelial Cell,Urine 65 /hpf (0-4); WBC,Urine 96 /hpf (0-5)
[2019-10-09 23:43] LABS: Appearance,Urine Bloody (Clear); Bilirubin,Urine 3+ (Negative); Blood,Urine Large (Negative); Color,Urine Brown; Glucose,Urine (UA) Negative (Negative); Ketones,Urine 1+ (Negative); Protein,Urine 3+ (Negative)
[2019-10-09 23:44] LABS: Leukocyte Esterase,Urine Small (Negative); Nitrite,Urine Negative (Negative)
[2019-10-09 23:55] LABS: Basophils % (A) 0 %; Eosinophils # (A) 0.2 k/uL (0-0.7); Eosinophils % (A) 3 %; HCT 38.9 % (34.0-46.0); HGB 12.4 gm/dL (11.4-16.0); Hypochromasia Slight; Lymphocytes # (A) 2.9 k/uL (1.0-4.8); Lymphocytes % (A) 32 %; MCH 25.3 pg (25.0-35.0); MCHC 31.9 g/dL (31.0-37.0); MCV 79.4 fL (80.0-100.0); Mean Platelet Volume 7.8; Monocytes # (A) 0.5 k/uL (0-1.0); Monocytes % (A) 6 %; Neutrophils # (A) 5.3 k/uL (1.3-7.7); Neutrophils % (A) 58 %; Platelet Count 288 k/uL (150-450); RBC 4.89 m/uL (3.80-5.40); RDW 14.1 % (11.5-15.5); WBC 9.1 k/uL (3.8-10.6)
[2019-10-10 00:05] LABS: African American GFR (CKD) >90 (>60 ml/min/1.73 sqM); Anion Gap 10 mmol/L; Blood Urea Nitrogen 12 mg/dL (7-17); Calcium 9.5 mg/dL (8.4-10.2); Carbon Dioxide 21 mmol/L (22-30); Chloride 106 mmol/L (98-107); Glucose 101 mg/dL (74-99); Non-African American GFR(CKD) >90 (>60 ml/min/1.73 sqM); Sodium 137 mmol/L (137-145)
--- NOTE | 2019-10-10 00:45 | US ---
EXAMINATION TYPE: US transvaginal DATE OF EXAM: 10/10/2019 COMPARISON: CT 2016 CLINICAL HISTORY: R/O torsion. Vaginal bleeding since 09/22/2019. R/O torsion. Hx PCOS. Patient on de po shot. G0. TECHNIQUE: Transvaginal (TV). Date of LMP: Unknown EXAM MEASUREMENTS: Uterus: 8.5 x 4.8 x 3.1 cm Endometrial Stripe: 0.47 cm Right Ovary: 3.7 x 2.0 x 2.0 cm Left Ovary: 3.3 x 1.7 x 2.0 cm 1. Uterus: Anteverted Appears slightly heterogeneous. 2. Endometrium: Hypoechoic fluid-appearing area within cervix measurin.1 x 0.4 x 0.1 cm. 3. Right Ovary: Follicles seen. Measures slightly enlarged. 4. Left Ovary: Anechoic area seen: 1.1 x 0.9 x 0.7 cm. Spectral, color and waveform doppler imaging shows good arterial flow within the ovaries. Venous ev aluation was limited possibly due to depth of ovaries. Could not demonstrate a clear venous waveform. 5. Bilateral Adnexa: Appear wnl 6. Posterior cul-de-sac: Appears wnl IMPRESSION: Color-flow Doppler images show no evidence of ovarian torsion. No free fluid. No adnexal mass.
[2019-10-10] MEDS ORDERED: TRANEXAMIC ACID 1,000 MG in SODIUM CHLORIDE 0.9% 100 ML IVPB ONE (01:00)
[2019-10-10] MEDS ORDERED: KETOROLAC 30 MG/ML 1 ML VIAL IVP STA (01:13)
[2019-10-10] MEDS ORDERED: PROMETHAZINE INJ 25 MG in SODIUM CHLORIDE 0.9% 50 ML IVPB ONE (01:25)
[2019-10-10 01:31] VITALS: BP 125/74; PULSE 90; TEMP 97.8
== END 2019-10-10 02:21 | disposition home or self-care (01) ==
LOC: EC 22:30
DX: N93.8 Other specified abnormal uterine and vaginal bleeding (principal); F32.9 Major depressive disorder, single episode, unspecified; F41.9 Anxiety disorder, unspecified; J45.909 Unspecified asthma, uncomplicated; Z79.899 Other long term (current) drug therapy; Z88.5 Allergy status to narcotic agent; Z88.8 Allergy status to other drugs, medicaments and biological substances
CPT/HCPCS: 99284; 96365; 96367; 96375; 96361; 36415; 80048; 85025; 81001; 81025; 93975; 76830; J2550; J1885

== ENCOUNTER → 2020-01-17 | Outpatient (CLI) | payer OTHER | END | disposition home or self-care (01) | LOC: LABWHC1 12:20 | PROVIDERS: ATTEND Family Medicine | DX: R50.9 Fever, unspecified (principal); R19.7 Diarrhea, unspecified | CPT/HCPCS: U0003; C9803 ==

== ENCOUNTER → 2020-02-16 | Outpatient (CLI) | payer OTHER ==
--- NOTE | 2020-02-16 13:15 | US ---
EXAMINATION TYPE: US abdomen complete DATE OF EXAM: 02/16/2020 COMPARISON: CT 2016 CLINICAL HISTORY: R10.9 Abdominal Pain. abd pain that comes and goes depending on the food she eats, can vomit during episode, morbidly obese EXAM MEASUREMENTS: Liver Length: 16.2 cm Gallbladder Wall: 0.2 cm CBD: 0.4 cm Spleen: 13.2 cm Right Kidney: 10.1 x 4.0 x 4.6 cm Left Kidney: 8.6 x 4.6 x 4.9 cm *overlying bowel and habitus limits exam Pancreas: not seen Liver: difficult to penetrate Gallbladder: wnl Evidence for sonographic Aguilar's sign: no CBD: wnl Spleen: slightly enlarged Right Kidney: wnl Left Kidney: limited imaging due to gas, even after rolling patient only estimated size Upper IVC: wnl Abd Aorta: limited views Exam noted suboptimal secondary to patient's large body habitus. Suboptimal evaluation of pancreas on images saved. No aneurysmal change and visualized portions of the abdominal aorta. IVC not well seen near hepatic dome. Visualized liver heterogeneously hyperechoic consistent with diffuse fatty infilt ration. Evaluation for focal masses suboptimal due to the heterogeneity. No surrounding ascites. No h epatic ductal dilatation. Gallbladder is seen with distended margins but no shadowing mobile intralum inal gallstones. Common bile duct is not dilated. Mild splenomegaly without surrounding ascites. Sple en more prominent on 2016 CT. Both kidneys seen without gross hydronephrosis. Suboptimal evaluation o f left kidney on images saved. IMPRESSION: Suboptimal study. Marked fatty infiltration of liver redemonstrated. Splenomegaly again s een. No acute finding clearly identified.
== END | disposition home or self-care (01) ==
LOC: RADUSWWP 08:53
PROVIDERS: ATTEND Family Medicine
DX: K76.0 Fatty (change of) liver, not elsewhere classified (principal); R16.1 Splenomegaly, not elsewhere classified
CPT/HCPCS: 76700

== ENCOUNTER → 2020-02-28 | Outpatient (CLI) | payer OTHER ==
--- NOTE | 2020-02-28 11:33 | FL ---
EXAMINATION TYPE: FL barium swallow DATE OF EXAM: 02/28/2020 CLINICAL INDICATION: 25 year-old female K21.9, GERD COMPARISON: None Total Fluoroscopy Time: 1 minute 36 seconds Total images: 29 FINDINGS: The swallowing mechanism is normal and hypopharyngeal anatomy is preserved. The cervical and thoracic portions have a normal course and caliber. There is some blunting of the secondary stripping waves resulting in persistent residual contrast thr oughout the thoracic esophagus when the patient is prone or supine. No tertiary peristalsis noted. The mucosa is normal and no persistent filling defect is encountered. No hiatal hernia is present. No gastroesophageal reflux is identified with Valsalva or positional ma neuvers. IMPRESSION: 1. There may be mild dysmotility given blunted secondary stripping waves. Some residual contrast hallie ins in the esophagus when the patient is prone or supine. 2. Otherwise, unremarkable esophagram.
== END | disposition home or self-care (01) ==
LOC: RADUSWWP 09:50
PROVIDERS: ATTEND Surgery Plastic and Reconstructive Surgery
DX: K21.9 Gastro-esophageal reflux disease without esophagitis (principal)
CPT/HCPCS: 74220

== ENCOUNTER → 2020-03-13 | Day surgery (SDC) | payer OTHER ==
[~2020-03-13] MED LIST: GLYCOPYRROLATE 0.2 MG/ML 2 ML VIAL ONE; KETAMINE 10 MG/ML 20 ML VIAL ONE; LACTATED RINGERS 1,000 ML IV SCH; LIDOCAINE 1% (10MG/ML) FOR IV START INTRADERMA ONE; LIDOCAINE 1% INJ 10MG/ML (20 ML MDV) ONE; MIDAZOLAM 2 MG/2 ML VIAL IV PRN; ONDANSETRON 4 MG/2 ML VIAL IVP ONE; ONDANSETRON 4 MG/2 ML VIAL IVP PRN; ONDANSETRON 4 MG/2 ML VIAL ONE; PROPOFOL 10 MG/ML 20 ML VIAL IV ONE
--- NOTE | 2020-03-13 08:45 | P.GSHP ---
History of Present Illness H&P Date: 03/13/20 CHIEF COMPLAINT: GERD HISTORY OF PRESENT ILLNESS: The patient is a 25-year-old female who presents reports gastroesophageal reflux disease. Upper endoscopy was offered for further evaluation and management. PAST MEDICAL HISTORY: Please see list. PAST SURGICAL HISTORY: Please see list. MEDICATIONS: Please see list. ALLERGIES: Please see list. SOCIAL HISTORY: No illicit drug use FAMILY HISTORY: No reports of Crohn disease or ulcerative colitis. REVIEW OF ORGAN SYSTEMS: CONSTITUTIONAL: No reports of fevers or chills. GI: Denies any blood in stools or constipation. PHYSICAL EXAM: VITAL SIGNS: Stable GENERAL: Well-developed and pleasant in no acute distress. HEENT: No scleral icterus. Extraocular movements grossly intact. Moist buccal mucosa. NECK: Supple without lymphadenopathy. CHEST: Unlabored respirations. Equal bilateral excursions. CARDIOVASCULAR: Regular rate and rhythm. Distal 2+ pulses. ABDOMEN: Soft, nondistended. MUSCULOSKELETAL: No clubbing, cyanosis, or edema. ASSESSMENT: 1. Gastroesophageal reflux disease PLAN: 1. Recommend proceeding with an upper endoscopy Past Medical History Past Medical History: Asthma Additional Past Medical History / Comment(s): CURRENT: GERD, POSSIBLE GB ISSUES. Migraines History of Any Multi-Drug Resistant Organisms: None Reported Past Surgical History: No Surgical Hx Reported Additional Past Surgical History / Comment(s): WISDOM TEETH PULLED Past Anesthesia/Blood Transfusion Reactions: Motion Sickness Additional Past Anesthesia/Blood Transfusion Reaction / Comment(s): HAS NEVER HAD ANESTHESIA, ONLY FOR WISDOM TEETH Past Psychological History: Anxiety, Depression, PTSD Smoking Status: Never smoker Past Alcohol Use History: Occasional Past Drug Use History: None Reported Medications and Allergies Home Medications Medication Instructions Recorded Confirmed Type traMADol HCL [Ultram] 50 mg PO DAILY PRN 06/29/15 03/08/20 History Naproxen 500 mg PO Q12HR PRN 01/07/16 03/08/20 History Albuterol Inhaler (Mhu) [Ventolin 1 - 2 puff INHALATION RT-Q6H PRN 05/05/18 03/08/20 History Hfa Inhaler] Cyclobenzaprine [Flexeril] 10 mg PO TID PRN 05/05/18 03/08/20 History lamoTRIgine [LaMICtal Xr] 50 mg PO HS 05/05/18 03/08/20 History Famotidine [Pepcid] 20 mg PO DAILY #5 tablet 08/19/18 03/08/20 Rx Omeprazole 40 mg PO HS 08/19/18 03/08/20 History Etonogestrel [Nexplanon] 1 dose SQ CONTINUOUS 03/08/20 03/08/20 History Verapamil [Isoptin] 40 mg PO HS 03/08/20 03/08/20 History Allergies Allergy/AdvReac Type Severity Reaction Status Date / Time codeine Allergy Unknown Verified 03/08/20 09:53 hydrocodone Allergy Vomiting Verified 03/08/20 09:53 adhesive tape AdvReac Rash/Hives Verified 03/08/20 10:19 fluticasone [From Flonase] AdvReac Unknown Verified 03/08/20 09:53
[2020-03-13 09:08] VITALS: RESP 20; TEMP 97.1
[2020-03-13 09:43] VITALS: BP 129/73; PULSE 100
--- NOTE | 2020-03-13 10:11 | P.PCN ---
Date of Procedure: 03/13/20 Description of Procedure: PREOPERATIVE DIAGNOSIS: Gastroesophageal reflux disease. Morbid obesity. POSTOPERATIVE DIAGNOSIS: Morbid obesity. Gastritis. Gastroesophageal reflux disease. OPERATION: Esophagogastroduodenoscopy with biopsies along antrum. SURGEON: Diamante Hua MD ANESTHESIA: MAC. INDICATIONS: The patient is a 25-year-old female who presents with a history of reflux disease. Benefits and risks of the procedure were described. Informed consent was obtained. DESCRIPTION: The patient was brought into the endoscopy suite and laid in the left lateral decubitus position. An Olympus gastroscope was passed along the posterior oropharynx down to the distal esophagus where the squamocolumnar junction was encountered at 40 cm from the incisors. The stomach was entered and no bile reflux was found. Additional findings are listed below. Biopsies with cold forceps were obtained of the antrum. The first through third portion of the duodenum was examined and unremarkable. Retroflexion of the scope confirmed Hill grade 2 lower esophageal valve. The squamocolumnar junction demonstrated LA grade B erosive esophagitis. The stomach was desufflated. The patient tolerated the procedure well. FINDINGS: Squamocolumnar junction 40 cm from the incisors. Diaphragmatic hiatus at 40 cm. Hill grade 2 lower esophageal valve. LA grade B erosive esophagitis. No active duodenitis. Chronic gastritis RECOMMENDATIONS: Upper endoscopy as needed. Plan - Discharge Summary Discharge Rx Participant: No New Discharge Prescriptions: Continue traMADol HCL [Ultram] 50 mg PO DAILY PRN PRN Reason: Pain Naproxen 500 mg PO Q12HR PRN PRN Reason: Pain Cyclobenzaprine [Flexeril] 10 mg PO TID PRN PRN Reason: Muscle Spasm Albuterol Inhaler (Mhu) [Ventolin Hfa Inhaler (Mhu)] 1 - 2 puff INHALATION RT-Q6H PRN PRN Reason: Shortness Of Breath lamoTRIgine [LaMICtal Xr] 50 mg PO HS Famotidine [Pepcid] 20 mg PO DAILY #5 tablet Omeprazole 40 mg PO HS Etonogestrel [Nexplanon] 1 dose SQ CONTINUOUS Verapamil [Isoptin] 40 mg PO HS Discharge Medication List traMADol HCL [Ultram] 50 mg PO DAILY PRN 06/29/15 [History] Naproxen 500 mg PO Q12HR PRN 01/07/16 [History] Albuterol Inhaler (Mhu) [Ventolin Hfa Inhaler (Mhu)] 1 - 2 puff INHALATION RT- Q6H PRN 05/05/18 [History] Cyclobenzaprine [Flexeril] 10 mg PO TID PRN 05/05/18 [History] lamoTRIgine [LaMICtal Xr] 50 mg PO HS 05/05/18 [History] Famotidine [Pepcid] 20 mg PO DAILY #5 tablet 08/19/18 [Rx] Omeprazole 40 mg PO HS 08/19/18 [History] Etonogestrel [Nexplanon] 1 dose SQ CONTINUOUS 03/08/20 [History] Verapamil [Isoptin] 40 mg PO HS 03/08/20 [History] [facility] [place] [facility] - [facility] Patient Instructions/Handouts: *[facility] - (Anesthesia) Endoscopy Discharge Instructions, Gastritis (DC), Upper Endoscopy (DC) Discharge Disposition: HOME SELF-CARE
== END | disposition home or self-care (01) ==
LOC: ORWHC2ENDO 08:41
PROVIDERS: ATTEND Surgery Plastic and Reconstructive Surgery
DX: K29.50 Unspecified chronic gastritis without bleeding (principal); K21.00 Gastro-esophageal reflux disease with esophagitis, without bleeding; K22.10 Ulcer of esophagus without bleeding; Z79.899 Other long term (current) drug therapy; E66.01 Morbid (severe) obesity due to excess calories; Z88.1 Allergy status to other antibiotic agents; Z88.5 Allergy status to narcotic agent; J45.909 Unspecified asthma, uncomplicated; F43.10 Post-traumatic stress disorder, unspecified; F41.9 Anxiety disorder, unspecified; F32.9 Major depressive disorder, single episode, unspecified; G43.909 Migraine, unspecified, not intractable, without status migrainosus; Z68.43 Body mass index [BMI] 50.0-59.9, adult
CPT/HCPCS: 81025; 88305; 43239; J2405; J2001; J2704

== ENCOUNTER 2021-09-23 13:14 | Observation (INO) | payer BC, OTHER ==
[2021-09-23] MEDS ORDERED: SODIUM CHLORIDE 0.9% 1,000 ML IV STA (13:23)
--- NOTE | 2021-09-23 14:07 | ED ---
General Adult HPI - General Source: patient, EMS, RN notes reviewed, old records reviewed Mode of arrival: EMS Limitations: no limitations <Basilio Nielsen - Last Filed: 09/23/21 15:01> <Blaine Carr - Last Filed: 09/23/21 16:26> - General Chief complaint: Syncope Stated complaint: Dizziness,headache Time Seen by Provider: 09/23/21 13:16 - History of Present Illness Initial comments: 26-year-old female presents for evaluation of syncope. Patient was at work, she began feeling ill, lay down and then had some to the she states she momentarily felt better but then subsequently did pass out. She was unconscious for several minutes. She had complaining of a migraine headache over the past weekend for several days. This was typical low-level migraine headache but the patient was not eating or drinking well. No chest pain or dyspnea. No abdominal pain. No fever. Denies current . (Basilio Nielsen) - Related Data Home Medications Medication Instructions Recorded Confirmed Naproxen 500 mg PO Q12HR PRN 01/07/16 09/23/21 Omeprazole 20 mg PO DAILY 08/19/18 09/23/21 Etonogestrel [Nexplanon] 1 dose SQ CONTINUOUS 03/08/20 09/23/21 Galcanezumab-Gnlm [Emgality Pen] 120 mg SQ Q28D 09/23/21 09/23/21 Lisdexamfetamine Dimesylate 40 mg PO DAILY 09/23/21 09/23/21 [Vyvanse] Allergies Allergy/AdvReac Type Severity Reaction Status Date / Time codeine Allergy Unknown Verified 09/23/21 14:38 hydrocodone Allergy Vomiting Verified 09/23/21 14:38 adhesive tape AdvReac Rash/Hives Verified 09/23/21 14:38 fluticasone [From Flonase] AdvReac Unknown Verified 09/23/21 14:38 Review of Systems ROS Other: All systems not noted in ROS Statement are negative. <Basilio Nielsen - Last Filed: 09/23/21 15:01> ROS Other: All systems not noted in ROS Statement are negative. <Blaine Carr - Last Filed: 09/23/21 16:26> ROS Statement: Those systems with pertinent positive or pertinent negative responses have been documented in the HPI. Past Medical History Past Medical History: Asthma Additional Past Medical History / Comment(s): migraines History of Any Multi-Drug Resistant Organisms: None Reported Past Surgical History: No Surgical Hx Reported Additional Past Surgical History / Comment(s): WISDOM TEETH PULLED Past Anesthesia/Blood Transfusion Reactions: Motion Sickness Additional Past Anesthesia/Blood Transfusion Reaction / Comment(s): HAS NEVER HAD ANESTHESIA, ONLY FOR WISDOM TEETH Past Psychological History: Anxiety, Depression, PTSD Smoking Status: Never smoker Past Alcohol Use History: Occasional Past Drug Use History: None Reported <Basilio Nielsen - Last Filed: 09/23/21 15:01> General Exam Limitations: no limitations General appearance: alert, in no apparent distress Head exam: Present: atraumatic, normocephalic Eye exam: Present: normal appearance, PERRL ENT exam: Present: mucous membranes dry Neck exam: Present: normal inspection. Absent: tenderness, meningismus Respiratory exam: Present: normal lung sounds bilaterally. Absent: respiratory distress, wheezes Cardiovascular Exam: Present: normal rhythm, tachycardia GI/Abdominal exam: Present: soft. Absent: distended, tenderness, guarding Extremities exam: Present: normal capillary refill Neurological exam: Present: alert, oriented X3, CN II-XII intact. Absent: motor sensory deficit Skin exam: Present: warm, intact, diaphoretic <Basilio Nielsen - Last Filed: 09/23/21 15:01> Course <aBsilio Nielsen - Last Filed: 09/23/21 15:01> Vital Signs 09/23/21 09/23/21 09/23/21 13:16 14:24 15:48 Temperature 98.1 F Pulse Rate 123 H 116 H 106 H Respiratory 18 16 Rate Blood Pressure 103/64 132/94 O2 Sat by Pulse 100 95 Oximetry 09/23/21 16:00 Temperature Pulse Rate 105 H Respiratory 19 Rate Blood Pressure 130/86 O2 Sat by Pulse 98 Oximetry - Reevaluation(s) Reevaluation #1: 09/23/21 15:00 Patient care signed out to Dr. Carr awaiting CT imaging and reevaluation. (Basilio Nielsen) EKG Findings - EKG Comments: EKG Findings:: Sinus tachycardia rate of 117, ND interval 106, QRS duration 82, QTC 371, no ST segment elevation, S1 Q 3 T3 pattern. <Basilio Nielsen - Last Filed: 09/23/21 15:01> Medical Decision Making - Lab Data Result diagrams: 09/23/21 13:25 09/23/21 13:25 <Basilio Nielsen - Last Filed: 09/23/21 15:01> - Lab Data Result diagrams: 09/23/21 13:25 09/23/21 13:25 <Blaine Carr - Last Filed: 09/23/21 16:26> - Medical Decision Making Patient is sent out to me by previous shift physician, Dr. Bear. Briefly, patient is a 26-year-old obese female presents to the emergency department for syncope. Patient had a significantly elevated d-dimer. Plan sent was to follow-up with pending CT imaging. Most recent vital signs at signout showed a heart rate of 116. Rest vital signs within acceptable limits. Per Dr. Nielsen patient does not have any shortness of breath or chest pain. She is not hypoxic. Patient reevaluated at the bedside at approximately 4:30 PM found to be stable medical condition. She denies any chest pain, shortness of breath. She does report feeling tired. Laboratory results and imaging studies were discussed with patient and patient's family member at the bedside. Patient still persistently tachycardic with heart rate in the 110s. Patient will be admitted to observation for cardiology consult, echocardiogram and medical monitoring. Patient is agreeable to plan. (Blaine Carr) - Lab Data Lab Results 09/23/21 09/23/21 09/23/21 Range/Units 13:25 13:25 13:25 WBC 12.0 H (3.8-10.6) k/uL RBC 5.96 H (3.80-5.40) m/uL Hgb 14.9 (11.4-16.0) gm/dL Hct 48.2 H (34.0-46.0) % MCV 80.7 (80.0-100.0) fL MCH 25.0 (25.0-35.0) pg MCHC 30.9 L (31.0-37.0) g/dL RDW 15.0 (11.5-15.5) % Plt Count 372 (150-450) k/uL MPV 7.7 Neutrophils % 83 % Lymphocytes % 12 % Monocytes % 4 % Eosinophils % 1 % Basophils % 0 % Neutrophils # 9.9 H (1.3-7.7) k/uL Lymphocytes # 1.4 (1.0-4.8) k/uL Monocytes # 0.5 (0-1.0) k/uL Eosinophils # 0.1 (0-0.7) k/uL Basophils # 0.0 (0-0.2) k/uL Hypochromasia Slight PT 10.3 (9.0-12.0) sec INR 0.9 (<1.2) APTT 23.8 (22.0-30.0) sec D-Dimer >34.10 H (<0.60) mg/L FEU Sodium (137-145) mmol/L Potassium (3.5-5.1) mmol/L Chloride (98-107) mmol/L Carbon Dioxide (22-30) mmol/L Anion Gap mmol/L BUN (7-17) mg/dL Creatinine (0.52-1.04) mg/dL Est GFR (CKD-EPI)AfAm (>60 ml/min/1.73 sqM) Est GFR (CKD-EPI)NonAf (>60 ml/min/1.73 sqM) Glucose (74-99) mg/dL Calcium (8.4-10.2) mg/dL Magnesium (1.6-2.3) mg/dL Total Bilirubin (0.2-1.3) mg/dL AST (14-36) U/L ALT (4-34) U/L Alkaline Phosphatase (38-126) U/L Troponin I (0.000-0.034) ng/mL Total Protein (6.3-8.2) g/dL Albumin (3.5-5.0) g/dL Urine Color Dark Brown Urine Appearance Turbid H (Clear) Urine pH 6.0 (5.0-8.0) Ur Specific [place] 1.035 (1.001-1.035) Urine Protein 2+ H (Negative) Urine Glucose (UA) Negative (Negative) Urine Ketones 1+ H (Negative) Urine Blood Negative (Negative) Urine Nitrite Negative (Negative) Urine Bilirubin 1+ H (Negative) Urine Urobilinogen 6.0 (<2.0) mg/dL Ur Leukocyte Esterase Large H (Negative) Urine RBC 50 H (0-5) /hpf Urine WBC 22 H (0-5) /hpf Ur Squamous Epith Cells 60 H (0-4) /hpf Calcium Oxalate Crystal Many H (None) /hpf Urine Bacteria Few H (None) /hpf Hyaline Casts 33 H (0-2) /lpf Urine Mucus Many H (None) /hpf 09/23/21 09/23/21 Range/Units 13:25 13:25 WBC (3.8-10.6) k/uL RBC (3.80-5.40) m/uL Hgb (11.4-16.0) gm/dL Hct (34.0-46.0) % MCV (80.0-100.0) fL MCH (25.0-35.0) pg MCHC (31.0-37.0) g/dL RDW (11.5-15.5) % Plt Count (150-450) k/uL MPV Neutrophils % % Lymphocytes % % Monocytes % % Eosinophils % % Basophils % % Neutrophils # (1.3-7.7) k/uL Lymphocytes # (1.0-4.8) k/uL Monocytes # (0-1.0) k/uL Eosinophils # (0-0.7) k/uL Basophils # (0-0.2) k/uL Hypochromasia PT (9.0-12.0) sec INR (<1.2) APTT (22.0-30.0) sec D-Dimer (<0.60) mg/L FEU Sodium 138 (137-145) mmol/L Potassium 4.4 (3.5-5.1) mmol/L Chloride 105 (98-107) mmol/L Carbon Dioxide 20 L (22-30) mmol/L Anion Gap 13 mmol/L BUN 9 (7-17) mg/dL Creatinine 0.85 (0.52-1.04) mg/dL Est GFR (CKD-EPI)AfAm >90 (>60 ml/min/1.73 sqM) Est GFR (CKD-EPI)NonAf >90 (>60 ml/min/1.73 sqM) Glucose 146 H (74-99) mg/dL Calcium 9.7 (8.4-10.2) mg/dL Magnesium 1.8 (1.6-2.3) mg/dL Total Bilirubin 0.5 (0.2-1.3) mg/dL AST 23 (14-36) U/L ALT 21 (4-34) U/L Alkaline Phosphatase 130 H (38-126) U/L Troponin I <0.012 (0.000-0.034) ng/mL Total Protein 8.0 (6.3-8.2) g/dL Albumin 4.3 (3.5-5.0) g/dL Urine Color Urine Appearance (Clear) Urine pH (5.0-8.0) Ur Specific [place] (1.001-1.035) Urine Protein (Negative) Urine Glucose (UA) (Negative) Urine Ketones (Negative) Urine Blood (Negative) Urine Nitrite (Negative) Urine Bilirubin (Negative) Urine Urobilinogen (<2.0) mg/dL Ur Leukocyte Esterase (Negative) Urine RBC (0-5) /hpf Urine WBC (0-5) /hpf Ur Squamous Epith Cells (0-4) /hpf Calcium Oxalate Crystal (None) /hpf Urine Bacteria (None) /hpf Hyaline Casts (0-2) /lpf Urine Mucus (None) /hpf Disposition <Basilio Nielsen - Last Filed: 09/23/21 15:01> Decision Time: 16:26 <Blaine Carr - Last Filed: 09/23/21 16:26> Clinical Impression: Syncope, Tachycardia Disposition: ADMITTED IP TO THIS HOSP Condition: Fair Referrals: Marc Calderon DO [Primary Care Provider] - 1-2 days
[2021-09-23 14:28] LABS: ALT 21 U/L (4-34); AST 23 U/L (14-36); African American GFR (CKD) >90 (>60 ml/min/1.73 sqM); Albumin 4.3 g/dL (3.5-5.0); Alkaline Phosphatase 130 U/L (38-126); Anion Gap 13 mmol/L; Blood Urea Nitrogen 9 mg/dL (7-17); Calcium 9.7 mg/dL (8.4-10.2); Carbon Dioxide 20 mmol/L (22-30); Chloride 105 mmol/L (98-107); Glucose 146 mg/dL (74-99); Magnesium 1.8 mg/dL (1.6-2.3); Non-African American GFR(CKD) >90 (>60 ml/min/1.73 sqM); Potassium 4.4 mmol/L (3.5-5.1); Sodium 138 mmol/L (137-145); Total Bilirubin 0.5 mg/dL (0.2-1.3)
[2021-09-23 14:31] LABS: Basophils % (A) 0 %; Eosinophils # (A) 0.1 k/uL (0-0.7); Eosinophils % (A) 1 %; HCT 48.2 % (34.0-46.0); HGB 14.9 gm/dL (11.4-16.0); Hypochromasia Slight; Lymphocytes # (A) 1.4 k/uL (1.0-4.8); Lymphocytes % (A) 12 %; MCHC 30.9 g/dL (31.0-37.0); MCV 80.7 fL (80.0-100.0); Mean Platelet Volume 7.7; Monocytes # (A) 0.5 k/uL (0-1.0); Monocytes % (A) 4 %; Neutrophils # (A) 9.9 k/uL (1.3-7.7); Neutrophils % (A) 83 %; Platelet Count 372 k/uL (150-450); RBC 5.96 m/uL (3.80-5.40)
[2021-09-23 14:37] LABS: INR 0.9 (<1.2); Partial Thromboplastin Time 23.8 sec (22.0-30.0); Prothrombin Time 10.3 sec (9.0-12.0)
[2021-09-23] MEDS ORDERED: HEPARIN SODIUM 1,000 UN/ML (10ML VL) IV PRN (14:52)
[2021-09-23] MEDS ORDERED: HEPARIN SODIUM 1,000 UN/ML (10ML VL) IV ONE (14:52)
[2021-09-23 14:57] LABS: Appearance,Urine Turbid (Clear); Bacteria,Urine Few /hpf; Bilirubin,Urine 1+ (Negative); Blood,Urine Negative (Negative); Calcium Oxalate Crystals,Urine Many /hpf; Color,Urine Dark Brown; Glucose,Urine (UA) Negative (Negative); Hyaline Casts,Urine 33 /lpf (0-2); Ketones,Urine 1+ (Negative); Leukocyte Esterase,Urine Large (Negative); Mucus,Urine Many /hpf; Nitrite,Urine Negative (Negative); Protein,Urine 2+ (Negative); RBC,Urine 50 /hpf (0-5); Specific Gravity,Urine 1.035 (1.001-1.035); Squamous Epithelial Cell,Urine 60 /hpf (0-4); WBC,Urine 22 /hpf (0-5)
[2021-09-23] MEDS ORDERED: HEPARIN SOD,PORK IN 0.45% NACL 25,000 UNIT in 0.45% NACL 1 250ML.BAG IV SCH (15:15)
--- NOTE | 2021-09-23 15:31 | CT ---
EXAMINATION TYPE: CT angio chest DATE OF EXAM: 09/23/2021 COMPARISON: No previous CT scan is available for comparison. HISTORY: Weakness, elevated dimer of 34. Denies cardiac hx. CT DLP: 1021.5 mGy.cm. Automated Exposure Control for Dose Reduction was Utilized. TECHNIQUE AND CONTRAST: CTA scan of the thorax is performed with IV Contrast, patient injected with 100 mL of Isovue 370, [facility]ogram protocol. MIP Images are created on an independent workstation and reviewed. FINDINGS: Artifactual images. No definite filling defect within the pulmonary trunk, main pulmonary arteries, l obar and segmental branches to suggest pulmonary embolism. Subsegmental branches are suboptimally ass essed. The pulmonary trunk measures 2.7 cm. No gross cardiomegaly. Unremarkable lungs. Patent trachea and main bronchi. No pleural or pericardial effusion. No pathologi sukhwinder enlarged lymph nodes in the chest. Suspected hepatic steatosis. No evidence of bone lesion. IMPRESSION: No major or central pulmonary embolism with the limitation of the artifactual images. No definite acu te pulmonary abnormality identified.
[2021-09-23] MEDS ORDERED: NALOXONE 0.4 MG/ML 1 ML VIAL IV PRN ×2 (16:22→17:16)
--- NOTE | 2021-09-23 16:48 | P.HPIM ---
History of Present Illness H&P Date: 09/23/21 26-year-old female with past medical history of seizures morbid obesity eating disorder mood disorder admitted to the hospital for a syncopal episode patient states that she felt weak today and then patient gradually lost consciousness Denies any chest pain or shortness of breath Patient states that she did not have seizures for a long time Patient was tachycardic in the ER Review of systems and systems has been reviewed all negative and positive findings as per history of present illness Constitutional: No acute distress, conversant, pleasant Eyes: Anicteric sclerae, moist conjunctiva, no lid-lag PERRLA ENMT: NC/AT Oropharynx clear, no erythema, exudates Neck: Supple, FROM, no masses, or JVD No carotid bruits No thyromegaly Lungs: Clear to auscultation Clear to percussion Normal respiratory effort, no accessory muscle use Cardiovascular: Heart regular in rate and rhythm, No murmurs, gallops, or rubs No peripheral edema Abdominal: Soft Nontender, no guarding, rebound or rigidity Abdomen moving with respiration Normoactive bowel sounds No hepatomegaly, No splenomegaly No pa lpable mass No abdominal wall hernia noted Skin: Normal temperature, tone, texture, turgor No induration No subcutaneous nodules No rash, lesions No ulcers Extremities: No digital cyanosis No clubbing Pedal pulses intact and symmetrical Radial pulses intact and symmetrical Normal gait and station No calf tenderness Psychiatric:Alert and oriented to person, place and time Appropriate affect Inta ct judgement Neuro: Muscles Strength 5/5 in all 4 extremities Sensation to light touch grossly present throughout Cranial nerves II-XII grossly intact No focal sensory deficits Syncopal episode exact etiology not clear we'll consult neurology since the patient did have a history of seizures in the past We'll check MRI of the brain Sinus tachycardia no evidence of PE by computed tomography scan of the lungs will monitor Morbid obesity Eating disorder Will observe overnight Past Medical History Past Medical History: Asthma Additional Past Medical History / Comment(s): migraines History of Any Multi-Drug Resistant Organisms: None Reported Past Surgical History: No Surgical Hx Reported Additional Past Surgical History / Comment(s): WISDOM TEETH PULLED Past Anesthesia/Blood Transfusion Reactions: Motion Sickness Additional Past Anesthesia/Blood Transfusion Reaction / Comment(s): HAS NEVER HAD ANESTHESIA, ONLY FOR WISDOM TEETH Past Psychological History: Anxiety, Depression, PTSD Smoking Status: Never smoker Past Alcohol Use History: Occasional Past Drug Use History: None Reported Medications and Allergies Home Medications Medication Instructions Recorded Confirmed Type Naproxen 500 mg PO Q12HR PRN 01/07/16 09/23/21 History Omeprazole 20 mg PO DAILY 08/19/18 09/23/21 History Etonogestrel [Nexplanon] 1 dose SQ CONTINUOUS 03/08/20 09/23/21 History Galcanezumab-Gnlm [Emgality Pen] 120 mg SQ Q28D 09/23/21 09/23/21 History Lisdexamfetamine Dimesylate 40 mg PO DAILY 09/23/21 09/23/21 History [Vyvanse] Allergies Allergy/AdvReac Type Severity Reaction Status Date / Time codeine Allergy Unknown Verified 09/23/21 14:38 hydrocodone Allergy Vomiting Verified 09/23/21 14:38 adhesive tape AdvReac Rash/Hives Verified 09/23/21 14:38 fluticasone [From Flonase] AdvReac Unknown Verified 09/23/21 14:38 Physical Exam Vitals: Vital Signs Temp Pulse Resp BP Pulse Ox 09/23/21 16:00 105 H 19 130/86 98 09/23/21 15:48 106 H 09/23/21 14:24 116 H 16 132/94 95 09/23/21 13:16 98.1 F 123 H 18 103/64 100 Intake and Output 09/23/21 09/23/21 09/23/21 06:59 14:59 22:59 Other: Weight 181.437 kg Results CBC & Chem 7: 09/23/21 13:25 09/23/21 13:25 Labs: Abnormal Lab Results - Last 24 Hours (Table) 09/23/21 09/23/21 09/23/21 Range/Units 13:25 13:25 13:25 WBC 12.0 H (3.8-10.6) k/uL RBC 5.96 H (3.80-5.40) m/uL Hct 48.2 H (34.0-46.0) % MCHC 30.9 L (31.0-37.0) g/dL Neutrophils # 9.9 H (1.3-7.7) k/uL D-Dimer >34.10 H (<0.60) mg/L FEU Carbon Dioxide (22-30) mmol/L Glucose (74-99) mg/dL Alkaline Phosphatase (38-126) U/L Urine Appearance Turbid H (Clear) Urine Protein 2+ H (Negative) Urine Ketones 1+ H (Negative) Urine Bilirubin 1+ H (Negative) Ur Leukocyte Esterase Large H (Negative) Urine RBC 50 H (0-5) /hpf Urine WBC 22 H (0-5) /hpf Ur Squamous Epith Cells 60 H (0-4) /hpf Calcium Oxalate Crystal Many H (None) /hpf Urine Bacteria Few H (None) /hpf Hyaline Casts 33 H (0-2) /lpf Urine Mucus Many H (None) /hpf 09/23/21 Range/Units 13:25 WBC (3.8-10.6) k/uL RBC (3.80-5.40) m/uL Hct (34.0-46.0) % MCHC (31.0-37.0) g/dL Neutrophils # (1.3-7.7) k/uL D-Dimer (<0.60) mg/L FEU Carbon Dioxide 20 L (22-30) mmol/L Glucose 146 H (74-99) mg/dL Alkaline Phosphatase 130 H (38-126) U/L Urine Appearance (Clear) Urine Protein (Negative) Urine Ketones (Negative) Urine Bilirubin (Negative) Ur Leukocyte Esterase (Negative) Urine RBC (0-5) /hpf Urine WBC (0-5) /hpf Ur Squamous Epith Cells (0-4) /hpf Calcium Oxalate Crystal (None) /hpf Urine Bacteria (None) /hpf Hyaline Casts (0-2) /lpf Urine Mucus (None) /hpf
[2021-09-23] MEDS ORDERED: NAPROXEN 250 MG TAB PO PRN (17:14)
[2021-09-23] MEDS ORDERED: ACETAMINOPHEN TAB 325 MG TAB PO PRN (17:16)
[2021-09-23] MEDS ORDERED: LACTULOSE 20 GM/30 ML CUP PO PRN (17:16)
[2021-09-23] MEDS ORDERED: LOPERAMIDE 2 MG CAP PO PRN (17:16)
[2021-09-23] MEDS ORDERED: MAGNESIUM HYDROXIDE 2,400 MG/10 ML CUP PO PRN (17:16)
[2021-09-23] MEDS ORDERED: ONDANSETRON 4 MG/2 ML VIAL IVP PRN (17:16)
[2021-09-23] MEDS ORDERED: MAG HYDROX/AL HYDROX/SIMETH 30 ML CUP PO PRN (17:16)
[2021-09-23] MEDS: SODIUM CHLORIDE 0.9% 1,000 ML IV SCH ×2 (20:18→20:45)
[2021-09-24] MEDS ORDERED: PANTOPRAZOLE 40 MG TABLET PO SCH (07:30)
[2021-09-24 08:09] LABS: Basophils % (A) 0 %; Eosinophils # (A) 0.2 k/uL (0-0.7); Eosinophils % (A) 2 %; HCT 40.7 % (34.0-46.0); Hypochromasia Moderate; Lymphocytes % (A) 22 %; MCH 24.5 pg (25.0-35.0); MCHC 29.4 g/dL (31.0-37.0); MCV 83.1 fL (80.0-100.0); Mean Platelet Volume 7.8; Monocytes # (A) 0.5 k/uL (0-1.0); Monocytes % (A) 6 %; Neutrophils # (A) 6.3 k/uL (1.3-7.7); Neutrophils % (A) 69 %; Platelet Count 310 k/uL (150-450); RDW 14.6 % (11.5-15.5); WBC 9.2 k/uL (3.8-10.6)
[2021-09-24 08:33] LABS: ALT 20 U/L (4-34); AST 23 U/L (14-36); African American GFR (CKD) >90 (>60 ml/min/1.73 sqM); Albumin/Globulin Ratio 1.2; Alkaline Phosphatase 103 U/L (38-126); Anion Gap 9 mmol/L; Blood Urea Nitrogen 8 mg/dL (7-17); Carbon Dioxide 25 mmol/L (22-30); Chloride 105 mmol/L (98-107); Globulin 3.3 g/dL; Glucose 98 mg/dL (74-99); Non-African American GFR(CKD) >90 (>60 ml/min/1.73 sqM); Potassium 4.5 mmol/L (3.5-5.1); Sodium 139 mmol/L (137-145); Total Bilirubin 0.7 mg/dL (0.2-1.3); Total Protein 7.3 g/dL (6.3-8.2)
[2021-09-24] MEDS ORDERED: NON FORMULARY DRUG (Lisdexamfetamine Dimesylate [Vyvanse] 40 MG Capsule) PO SCH (09:00)
--- NOTE | 2021-09-24 09:51 | P.CRDCN ---
History of Present Illness Consult date: 09/24/21 History of present illness: HISTORY OF PRESENT ILLNESS: This is a 26-year-old female with a past medical history significant for seizure disorder, chronic migraines, and morbid obesity. 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 We have been asked to see the patient in consultation for syncope. Patient examined at the bedside. Patient states she was at work yesterday and around 10am she started to feel "yucky". She reports only drinking coffee at that time and had not ate anything yet. She decided to eat a Kind bar and a Hot Pocket. She states she continued to feel poorly. Around 11:30 AM she began to feel faint and lightheaded so she states that she laid on the floor with the fan on her face. She states that she thought she was started to feel better so she got up and was walking to leave work to come to the hospital to be evaluated when she lapsed on the floor by her coworkers desk. She states that a coworker thought that she possibly had a seizure. She states that she was dripping in sweat and her clothes were drenched. The patient states she woke up and was confused and thought she was at home. She states she does not think this was a seizure as it does not feel like her previous seizures did. She does report having a fever of 100 yesterday. Patient denies ever having a syncopal episode like this in the past. The patient's urinalysis was abnormal, however she denies any urinary signs or symptoms. The patient was found to be tachycardic on admission and also hypertensive. However her vital signs have stabilized without any intervention. The patient reports an intolerance to beta blockers in the past which have been prescribed to her secondary to her migraines. * EKG reveals sinus tachycardia with no signs of acute ischemia * Chest CT: No PE noted. * Laboratory data: W BC 12.0. Hemoglobin 14.9. Platelet count 372. D-dimer greater than 34.10. Sodium 138. Potassium 4.4. BUN 9. Creatinine 0.85. Magnesium 1.8. Troponin negative 3. * Current home cardiac medications include none REVIEW OF SYSTEMS: At the time of my exam: CONSTITUTIONAL: Denies fever or chills. HEENT: Denies blurred vision, vision changes, or eye pain. Denies hemoptysis CARDIOVASCULAR: Denies chest pain. Denies orthopnea. Denies PND. Denies palpitations RESPIRATORY: Denies shortness of breath. GASTROINTESTINAL: Denies abdominal pain. Denies nausea or vomiting. HEMATOLOGIC: Denies bleeding disorders. GENITOURINARY: Denies any blood in urine. SKIN: Denies pruitis. Denies rash. PHYSICAL EXAM: VITAL SIGNS: Reviewed. GENERAL: Well-developed in no acute distress. HEENT: Head is normocephalic. Pupils are equal, round. Sclerae anicteric. Mucous membranes of the mouth are moist. Neck supple. No JVD or thyromegaly LUNGS: Respirations even and unlabored. Lungs essentially clear to auscultation bilaterally. HEART: Regular rate and rhythm. S1 and S2 heard. ABDOMEN: Soft. Nondistended. Nontender. EXTREMITIES: Normal range of motion. No clubbing or cyanosis. Peripheral pulses intact. No lower extremity edema NEUROLOGIC: Awake and alert. Oriented x 3. ASSESSMENT: Syncope Sinus tachycardia, resolved Seizure disorder Chronic migraines Morbid obesity PLAN: Obtain 2D echo to assess cardiac structure and function Continue telemetry monitoring Continue to monitor blood pressure Check TSH Check orthostatic blood pressures Patients UA abnormal on admission. Further workup per internal medicine. Further recommendations pending patient course Nurse practitioner note has been reviewed by physician. Signing provider agrees with the documented findings, assessment, and plan of care. Past Medical History Past Medical History: Asthma, Seizure Disorder Additional Past Medical History / Comment(s): chronic migraines. had a "neurological issue at the age of 19", femoral seizures. endoscopy (negative) History of Any Multi-Drug Resistant Organisms: None Reported Past Surgical History: No Surgical Hx Reported Additional Past Surgical History / Comment(s): WISDOM TEETH PULLED Past Anesthesia/Blood Transfusion Reactions: Motion Sickness Additional Past Anesthesia/Blood Transfusion Reaction / Comment(s): HAS NEVER HAD ANESTHESIA, ONLY FOR WISDOM TEETH Past Psychological History: Anxiety, Depression, PTSD Smoking Status: Never smoker Past Alcohol Use History: Occasional Past Drug Use History: None Reported - Past Family History Mother Family Medical History: Rheumatoid Arthritis (RA), Thyroid Disorder Additional Family Medical History / Comment(s): heart condition (uncertain of name) anemia. mom family diabetes heart disease Father Family Medical History: Diabetes Mellitus Additional Family Medical History / Comment(s): neuropathy Sister(s) Additional Family Medical History / Comment(s): elos dahners syndrome Medications and Allergies Home Medications Medication Instructions Recorded Confirmed Type Naproxen 500 mg PO Q12HR PRN 01/07/16 09/23/21 History Omeprazole 20 mg PO DAILY 08/19/18 09/23/21 History Etonogestrel [Nexplanon] 1 dose SQ CONTINUOUS 03/08/20 09/23/21 History Galcanezumab-Gnlm [Emgality Pen] 120 mg SQ Q28D 09/23/21 09/23/21 History Lisdexamfetamine Dimesylate 40 mg PO DAILY 09/23/21 09/23/21 History [Vyvanse] Allergies Allergy/AdvReac Type Severity Reaction Status Date / Time codeine Allergy Unknown Verified 09/23/21 14:38 egg Allergy Nausea & Verified 09/24/21 09:42 Vomiting & Diarrhea hydrocodone Allergy Vomiting Verified 09/23/21 14:38 adhesive tape AdvReac Rash/Hives Verified 09/23/21 14:38 fluticasone [From Flonase] AdvReac Unknown Verified 09/23/21 14:38 Physical Exam Vitals: Vital Signs Temp Pulse Pulse Resp BP BP Pulse Ox 09/24/21 02:22 98.1 F 85 18 121/66 99 09/23/21 19:52 97.8 F 105 H 17 150/77 98 09/23/21 17:57 99.3 F 108 H 22 158/92 99 09/23/21 16:00 105 H 19 130/86 98 09/23/21 15:48 106 H 09/23/21 14:24 116 H 16 132/94 95 09/23/21 13:16 98.1 F 123 H 18 103/64 100 Intake and Output 09/23/21 09/24/21 09/24/21 22:59 06:59 14:59 Other: # Voids 1 1 Weight 181.437 kg Results 09/24/21 07:14 09/24/21 07:14 Cardiac Enzymes 09/23/21 09/23/21 09/23/21 Range/Units 13:25 13:25 17:58 AST 23 (14-36) U/L Troponin I <0.012 <0.012 (0.000-0.034) ng/mL 09/23/21 Range/Units 22:19 AST (14-36) U/L Troponin I <0.012 (0.000-0.034) ng/mL Coagulation 09/23/21 09/23/21 Range/Units 13:25 22:19 PT 10.3 (9.0-12.0) sec APTT 23.8 24.1 (22.0-30.0) sec CBC 09/23/21 Range/Units 13:25 WBC 12.0 H (3.8-10.6) k/uL RBC 5.96 H (3.80-5.40) m/uL Hgb 14.9 (11.4-16.0) gm/dL Hct 48.2 H (34.0-46.0) % Plt Count 372 (150-450) k/uL Comprehensive Metabolic Panel 09/23/21 Range/Units 13:25 Sodium 138 (137-145) mmol/L Potassium 4.4 (3.5-5.1) mmol/L Chloride 105 (98-107) mmol/L Carbon Dioxide 20 L (22-30) mmol/L BUN 9 (7-17) mg/dL Creatinine 0.85 (0.52-1.04) mg/dL Glucose 146 H (74-99) mg/dL Calcium 9.7 (8.4-10.2) mg/dL AST 23 (14-36) U/L ALT 21 (4-34) U/L Alkaline Phosphatase 130 H (38-126) U/L Total Protein 8.0 (6.3-8.2) g/dL Albumin 4.3 (3.5-5.0) g/dL Current Medications Generic Name Dose Route Start Last Admin Trade Name Rafaelq PRN Reason Stop Dose Admin Acetaminophen 650 mg 09/23/21 17:16 Acetaminophen Tab 325 Mg Tab PO Q6HR PRN Mild Pain or Fever > 100.5 Al Hydroxide/Mg Hydroxide 15 ml 09/23/21 17:16 Mag Hydrox/Al Hydrox/Simeth 30 Ml Cup PO Q6HR PRN Indigestion Sodium Chloride 1,000 mls @ 20 mls/hr 09/23/21 16:30 09/23/21 20:45 Saline 0.9% IV 20 mls/hr .Q24H MERLINE Administration Lactulose 20 gm 09/23/21 17:16 Lactulose 20 Gm/30 Ml Cup PO DAILY PRN Constipation Loperamide HCl 2 mg 09/23/21 17:16 Loperamide 2 Mg Cap PO Q2HR PRN Loose Stool Magnesium Hydroxide 2,400 mg 09/23/21 17:16 Magnesium Hydroxide 2,400 Mg/10 Ml Cup PO DAILY PRN Constipation Naloxone HCl 0.2 mg 09/23/21 16:22 Naloxone 0.4 Mg/Ml 1 Ml Vial IV Q2M PRN Opioid Reversal Naproxen 500 mg 09/23/21 17:14 Naproxen 250 Mg Tab PO Q12HR PRN Pain Non-Formulary Medication 40 mg 09/24/21 09:00 Lisdexamfetamine Dimesylate [Vyvanse] PO DAILY MERLINE Ondansetron HCl 4 mg 09/23/21 17:16 Ondansetron 4 Mg/2 Ml Vial IVP Q8HR PRN Nausea And Vomiting Pantoprazole Sodium 40 mg 09/24/21 07:30 Pantoprazole 40 Mg Tablet PO AC-BRKFST MERLINE Intake and Output 09/23/21 09/24/21 09/24/21 22:59 06:59 14:59 Other: # Voids 1 1 Weight 181.437 kg 09/23/21 13:25 09/23/21 13:25
--- NOTE | 2021-09-24 10:03 | P.CNNES ---
History of Present Illness Consult date: 09/24/21 Requesting physician: Ciera Mccann Reason for Consult: seizure History of Present Illness: This is a 26-year-old woman with history of chronic migraine, possible febrile seizure-like episodes, morbid obesity who presented emergency department because of a recent passing out episode. Patient stated that yesterday she was at work and close to 12 PM she felt sick to her stomach then felt hot and the patient sat on her desk then around 12:15 she stood up she took a few steps then lost consciousness. She stated that she was told that she had rolling of her eyes but was told she did not have any jerking of any extremities. She denies any tongue bite or soreness, any urinary or bowel incontinence. She is unsure of duration of the episode. She denied any headache prior after the episode. She denies of any focal weakness, numbness, any visual disturbance, any nausea any vomiting. Currently she feels her entire body is a weak. She denies of any recent fever. Of note, patient stated that she had the 5 episodes of passing out in the past have from the age of 19 to the age of 23 and she could not describe it. She stated she had fever with headache and would pass out. She was told those were seizure-like episodes. Patient had extensive testing of multiple MRIs (close to 7), multiple routine EEGs which came back negative. She also had 2 lumbar puncture in the past words were negative she stated that the she is unsure about the opening pressure. She was told that she have the pressure behind her eyes and the patient is being managed by her neurologist Dr. Freeman who referred her to her neurologist at [facility] for chronic migraine which she has seen but does not recall name of provider but stated is on Emgality and dramatically help and with her migraines in which she used to get the a frequent migraines but currently having 4 episodes in a month. With a prior passing out episode from the age of [age] she thinks she had migraine associated with that but unsure of all of him or associated the with a passing out episode but this episode did not have a migraine. She could not describe those previous loss of consciousness in past. She is being referred to a neuro-electrical parts reconditioner but pending for insurance authorization. In the past she was on Topamax but had a reaction to it. She also had reaction to Inderal. She was on Lamictal in the past for her mood but then was discontinued since it was felt was not needed. She does not recall about other antiepileptic drugs and could not tell me about other medication that she was on in the past. Regarding her history she stated it was normal no complication. There is no family history of seizures. Some of the workup in our facility during this hospital visit consisted of: Initial vital signs was blood pressure of 103/64, heart rate of 123, respiratory of 18, temperature of 98.1 Fahrenheit oral and pulse ox of 100% room air. Patient has been afebrile so far. Initial white blood cells 12.0 and is slightly neutrophilic but the repeat it is 9.2. Her elevated blood blood cell initially was reactive. Initial serum glucose is 146 then normalized Phosphatase was 130 at. Carbon dioxide is 20 otherwise rest is unremarkable. Prolactin is 18.5, plasma lactic acid venous 1.5 Urinalysis seen possible suggestive of urinary tract infection. EKG is reported as sinus tachycardia with short WI interval. Left posterior fascicular block. Nonspecific T wave abnormality. Review of Systems Review of system: The 12 point system was reviewed and apparent positive and negative per HPI. Past Medical History Past Medical History: Asthma, Seizure Disorder Additional Past Medical History / Comment(s): chronic migraines. had a "neurological issue at the age of 19", femoral seizures. endoscopy (negative) History of Any Multi-Drug Resistant Organisms: None Reported Past Surgical History: No Surgical Hx Reported Additional Past Surgical History / Comment(s): WISDOM TEETH PULLED Past Anesthesia/Blood Transfusion Reactions: Motion Sickness Additional Past Anesthesia/Blood Transfusion Reaction / Comment(s): HAS NEVER HAD ANESTHESIA, ONLY FOR WISDOM TEETH Past Psychological History: Anxiety, Depression, PTSD Smoking Status: Never smoker Past Alcohol Use History: Occasional Past Drug Use History: None Reported - Past Family History Mother Family Medical History: Rheumatoid Arthritis (RA), Thyroid Disorder Additional Family Medical History / Comment(s): heart condition (uncertain of name) anemia. mom family diabetes heart disease Father Family Medical History: Diabetes Mellitus Additional Family Medical History / Comment(s): neuropathy Sister(s) Additional Family Medical History / Comment(s): elos dahners syndrome Medications and Allergies Home Medications Medication Instructions Recorded Confirmed Type Naproxen 500 mg PO Q12HR PRN 01/07/16 09/23/21 History Omeprazole 20 mg PO DAILY 08/19/18 09/23/21 History Etonogestrel [Nexplanon] 1 dose SQ CONTINUOUS 03/08/20 09/23/21 History Galcanezumab-Gnlm [Emgality Pen] 120 mg SQ Q28D 09/23/21 09/23/21 History Lisdexamfetamine Dimesylate 40 mg PO DAILY 09/23/21 09/23/21 History [Vyvanse] Allergies Allergy/AdvReac Type Severity Reaction Status Date / Time codeine Allergy Unknown Verified 09/23/21 14:38 egg Allergy Nausea & Verified 09/24/21 09:42 Vomiting & Diarrhea hydrocodone Allergy Vomiting Verified 09/23/21 14:38 adhesive tape AdvReac Rash/Hives Verified 09/23/21 14:38 fluticasone [From Flonase] AdvReac Unknown Verified 09/23/21 14:38 Physical Examination - Vital Signs Vital Signs: Vital Signs Temp Pulse Pulse Resp BP BP Pulse Ox 09/24/21 07:00 98.6 F 83 16 115/72 96 09/24/21 02:22 98.1 F 85 18 121/66 99 09/23/21 19:52 97.8 F 105 H 17 150/77 98 09/23/21 17:57 99.3 F 108 H 22 158/92 99 09/23/21 16:00 105 H 19 130/86 98 09/23/21 15:48 106 H 09/23/21 14:24 116 H 16 132/94 95 09/23/21 13:16 98.1 F 123 H 18 103/64 100 Intake and Output 09/23/21 09/24/21 09/24/21 22:59 06:59 14:59 Other: # Voids 1 1 Weight 181.437 kg GENERAL: The patient is lying in bed and is not in acute distress. CHEST: The heart rate is regular rate rhythm. No murmurs to auscultation. LUNG: Clear to auscultation bilaterally no wheezing noted throughout. Not labored breathing. ABDOMEN/GI: Bowel sounds present in all 4 quadrants. No tenderness to palpation throughout. NEUROLOGICAL: Higher mental function: The patient is awake, alert, oriented to self, place and time. Patient is following commands. No aphasia and no neglect. Cranial nerves: The pupils are round, equal and reactive to light and accommodation. Visual rosario are full to confrontation throughout. Extraocular movement is intact no nystagmus is noted. Facial sensation is normal to touch throughout. The facial strength is normal throughout. Hearing is normal bilaterally to hand rub. Tongue is midline and moved [id number] without any difficulty. No dysarthria is noted. Shoulder shrug is normal bilaterally. Motor: Gait is normal. The strength is 5 over 5 throughout. Normal tone and bulk. Cerebellum: Normal finger to nose heel to vides bilaterally. Sensation: Sensation is normal to touch throughout. Reflexes (right/left): 2+ throughout. Plantars are downgoing bilaterally. Results - Laboratory Findings CBC and BMP: 09/24/21 07:14 09/24/21 07:14 Abnormal Lab Findings: Abnormal Labs 09/23/21 09/23/21 09/23/21 13:25 13:25 13:25 WBC 12.0 H RBC 5.96 H Hct 48.2 H MCH MCHC 30.9 L Neutrophils # 9.9 H D-Dimer >34.10 H Carbon Dioxide Glucose Alkaline Phosphatase Urine Appearance Turbid H Urine Protein 2+ H Urine Ketones 1+ H Urine Bilirubin 1+ H Ur Leukocyte Esterase Large H Urine RBC 50 H Urine WBC 22 H Ur Squamous Epith Cells 60 H Calcium Oxalate Crystal Many H Urine Bacteria Few H Hyaline Casts 33 H Urine Mucus Many H 09/23/21 09/24/21 13:25 07:14 WBC RBC Hct MCH 24.5 L MCHC 29.4 L Neutrophils # D-Dimer Carbon Dioxide 20 L Glucose 146 H Alkaline Phosphatase 130 H Urine Appearance Urine Protein Urine Ketones Urine Bilirubin Ur Leukocyte Esterase Urine RBC Urine WBC Ur Squamous Epith Cells Calcium Oxalate Crystal Urine Bacteria Hyaline Casts Urine Mucus Assessment and Plan Assessment: Syncope episode. Unsure etiology. Possible seizure (eyes rolling back with refractive labs but is not definitive). Previous seizure-like episodes associated with migraine and fever (about 5 episodes from age 19 years to 23 years. She had extensive testing: multiple routine EEG's, MRI's Brain and was told normal. She also had 2 lumbar puncture and was unremarkable) Possible acute UTI Chronic migraine Morbid obesity Plan: An EEG, MRI of the brain, 2D echo and orthostatic vitals are ordered and pending. She stated she wants to hold off on MRI Brain since had close to 7 MRI Brain in past and was normal. I spoke with the patient regarding starting the patient on antiepileptic drug but she stated that she'll hold off and she'll discuss this with her neurologist as an outpatient I highly recommend an epilepsy monitoring unit as an outpatient for 1-2 weeks to possibly capture these episodes. She is in the process of seeing and neuro electrical parts reconditioner for possible optic edema that she was notified. Possible pending lumbar puncture as an outpatient and I recommend and opening and closing pressure. Cardiology team is on board We'll defer the rest of the medical management to the primary team Per [facility], because of the episodes of syncopal/loss of consciousness she is to avoid driving for 6 month until no further episodes. To avoid heights, avoid that using heavy machinery and to avoid swimming unassisted. The plan is discussed with patient and her nurse. Thank you for the consultation. UPDATE: Routine EEG: Is abnormal. The rare diffuse spike/sharp wave discharges increases risk for generalized seizures. Otherwise there is no focal slowing or seizures captured during this study. Patient and her mother who is at bedside were updated of the EEG result and she opted of starting antiepileptic drug at this time and would like to follow-up with her neurologist as outpatient. Notified her that I recommended to pursue with prolonged EEG and if possible epilepsy monitoring as outpatient. Otherwise no additional testing. Patient is clear for discharge from neurological perspective. Alexx Rivera M.D. Neuro-Hospitalist Time with Patient: Greater than 30
--- NOTE | 2021-09-24 10:58 | CA ---
Transthoracic Echo Report Name: Clari Barron Age: 26 Gender: F : 1995 Exam Date: 09/24/2021 08:51 Exam Location: [facility] Ht (in): 72 Wt (lb): 400 Ordering Physician: Basilio Nielsen MD Attending/Referring Phys: [id number], Gia Sub Arc Operator Odalis Napoles RDCS Procedure CPT: Indications: Syncope Cardiac Hx: Technical Quality: Technically difficult study Contrast 1: Lumason Total Dose (mL): 4 Contrast 2: Total Dose (mL): MEASUREMENTS (Male / Female) Normal Values 2D ECHO LV Diastolic Diameter PLAX 5.2 cm 4.2 - 5.9 / 3.9 - 5.3 cm LV Systolic Diameter PLAX 4.1 cm IVS Diastolic Thickness 1.3 cm 0.6 - 1.0 / 0.6 - 0.9 cm LVPW Diastolic Thickness 1.3 cm 0.6 - 1.0 / 0.6 - 0.9 cm LV Relative Wall Thickness 0.5 RV Internal Dim ED PLAX 3.2 cm LA Volume 71.6 cm??? 18 - 58 / 22 - 52 cm??? M-MODE Aortic Root Diameter MM 3.4 cm DOPPLER AV Peak Velocity 126.1 cm/s AV Peak Gradient 6.4 mmHg LVOT Peak Velocity 84.6 cm/s LVOT Peak Gradient 2.9 mmHg MV Area PHT 3.5 cm??? Mitral E Point Velocity 79.7 cm/s Mitral A Point Velocity 96.3 cm/s Mitral E to A Ratio 0.8 MV Deceleration Time 218.6 ms MV E' Velocity 7.8 cm/s Mitral E to MV E' Ratio 10.2 FINDINGS Left Ventricle Mildly increased left ventricular wall thickness. No obvious regional wall motion abnormalities. Left ventricular ejection fraction is estimated at 50 -55 %. Right Ventricle Normal right ventricular size and function. Right Atrium Right atrium not well visualized. Left Atrium Moderately increased left atrial volume. Atrial septal was not well seen. Mitral Valve Structurally normal mitral valve. No mitral stenosis, regurgitation or prolapse. Aortic Valve Aortic valve not well visualized. No aortic valve stenosis or regurgitation. Tricuspid Valve Tricuspid valve not well visualized. Pulmonic Valve Pulmonic valve not well visualized. Pericardium No pericardial effusion. Aorta Normal size aortic root and proximal ascending aorta. CONCLUSIONS #1. Normal left ventricular size with fairly preserved LV function with ejection fraction of 50-55%. Mild left ventricle hypertrophy. #2. Moderate left atrial enlargement. #3. Normal valvular function Previewed by: Dr. Johny Gonzalez MD (Electronically Signed) Final Date: 24 September 2021 10:57
--- NOTE | 2021-09-24 14:37 | EEG ---
ELECTROENCEPHALOGRAM REPORT DATE OF SERVICE: 09/24/2021 CLINICAL HISTORY: This is a 26-year-old young woman with history of seizure-like episode in the past, who presented because of a syncopal episode. The video EEG is obtained to evaluate for seizure epileptiform activity. The patient is not on any antiepileptic drugs. EEG TYPE: A routine 21 channel EEG is obtained to evaluate for seizure epileptiform activity. DESCRIPTION: Wakefulness and drowsiness are obtained. During awake state, the posterior- dominant rhythm consists of low to moderate voltage of 11 hertz activity that is well modulated and well sustained. There is no physiological stage 2 sleep architecture. There is no focal slowing. INTERICTAL AND ICTAL: There is generalized sharp/spike slow waves with frontal predominance, but otherwise there is no seizure seen. ACTIVATION PROCEDURE: Photic stimulation did not evoke a posterior driving response. There is no abnormality during the photic stimulation. Hyperventilation is not performed. CLINICAL INTERPRETATION: This is an abnormal routine EEG. The rare generalized sharp/spike discharges increases risk for generalized epilepsy. Otherwise there is no focal slowing or seizure. Clinical correlation is recommended. RECOMMENDATIONS: I recommend a prolonged EEG as an outpatient. MMODL / IJN: [id number] / [id number]
[2021-09-24 15:07] VITALS: BP 122/75; PULSE 93; RESP 18; TEMP 98.8
--- NOTE | 2021-09-24 15:44 | P.DS ---
Providers Date of admission: 09/23/21 16:22 Expected date of discharge: 09/24/21 Attending physician: Winnie Thomas MD Consults: 09/23/21 16:23 Consult Physician Routine Consulting Provider: Pawel Portillo Consult Reason/Comments: syncope, tachycardia Do you want consulting provider notified?: Yes 09/24/21 08:48 Consult Physician Routine Consulting Provider: Alexx Rivera Consult Reason/Comments: seizure Do you want consulting provider notified?: Yes Primary care physician: [facility] Course: Discharge Diagnosis: Syncopal episode, likely seizure activity EEG concerning of rare epileptiform discharges. History of seizure activity. Mood disorder Eating disorder Elevated d-dimer, CTA negative for PE Morbid obesity with a BMI of 54.2 kg/m Hospital Course: Patient is a very pleasant 26-year-old female with a past medical history of febrile seizure like episodes, mood disorder, eating disorder, and morbid obesity with a BMI of 54.2 kg/m. She presented to the emergency department with a chief complaint of syncopal episode versus seizure activity witnessed by coworker stating patient suddenly lost consciousness and eyes rolled back into her head. Patient underwent full evaluation in the emergency department and was admitted under our services with consultation to cardiology and neurology. CBC initially revealing mild leukocytosis with WBC count of 12.0, likely reactive as this has resolved and current WBC count of 9.2. BMP unremarkable with the exception of slightly elevated alkaline phosphatase of 130 which resolved and on repeat was 103. Lactate normal findings at 1.5. Prolactin 18.500.. Urinalysis contaminated specimen. D-dimer elevated at greater than 34, CTA chest negative for reports of pulmonary emboli, stating no definite acute pulmonary abnormality identified. EKG showing sinus tachycardia at 117 bpm with T-wave inversion in leads III and aVF Echocardiogram revealing a normal EF between 50 and 55% with mild left ventricular hypertrophy and moderate left atrial enlargement. EEG abnormal showing rare Eliptiform discharges were noted which increases patient's risk of generalized epilepsy. Neurology discussed placing pt on antiepileptic medications, however pt declining at this time. Patient states she would rather wait until follow-up with her neurologist, Dr. Mora and undergo 23 hour EEG. Patient is medically stable and denies having any other complaints or concerns including headache, lightheadedness, dizziness, chest pain, palpitations, shortness of breath, abdominal pain, nausea, vomiting, or experiencing any numbness/tingling/weakness/swelling in her extremities. Patient is stable for discharge home. Patient to follow up outpatient with PCP and neurology as discussed. Patient was educated on [place] state law stating no driving until seizure free for 6 months. Physical examination: Patient seen and examined at bedside. Vital signs reviewed and stable. General: Nontoxic, no distress and appears stated age. Morbidly obese. Derm: Skin warm and dry, normal coloration for ethnicity. Head: Atraumatic, normocephalic and symmetric. Eyes: EOMs intact, no lid lag, and anicteric sclera Mouth: no lip lesions, mucus membranes moist Cardiovascular: regular rate and rhythm with normal S1S2, no murmur, positive posterior tibial pulses bilaterally, and cap refill < 2 seconds. Lungs: Respirations even, regular, and unlabored on room air. Lungs CTA bilaterally, no rhonchi, no rales, no wheezing, and no accessory muscle usage. Abdominal: soft, nontender to palpation, no guarding, no appreciable organomegaly Ext: ROM intact. No gross muscle atrophy, no edema, no contractures Neuro: Speech clear, face symmetrical and CN II-XII grossly intact with no noted focal neuro deficits Psych: Alert and oriented to person, place, time, and situation. Appropriate and pleasant affect. A total of 32 minutes of time were spent preparing this complex discharge summary. Pt was discharged on 09/24/21 at 3:42 PM. Clyde Bueno NP rendered care for this patient independently, reviewed the findings and plan as documented in the note above. I did not physically speak with or examine the patient on this date. Patient Condition at Discharge: Stable Plan - Discharge Summary Discharge Rx Participant: No New Discharge Prescriptions: Continue Naproxen 500 mg PO Q12HR PRN PRN Reason: Pain Omeprazole 20 mg PO DAILY Etonogestrel [Nexplanon] 1 dose SQ CONTINUOUS Galcanezumab-Gnlm [Emgality Pen] 120 mg SQ Q28D Lisdexamfetamine Dimesylate [Vyvanse] 40 mg PO DAILY Discharge Medication List Naproxen 500 mg PO Q12HR PRN 01/07/16 [History] Omeprazole 20 mg PO DAILY 08/19/18 [History] Etonogestrel [Nexplanon] 1 dose SQ CONTINUOUS 03/08/20 [History] Galcanezumab-Gnlm [Emgality Pen] 120 mg SQ Q28D 09/23/21 [History] Lisdexamfetamine Dimesylate [Vyvanse] 40 mg PO DAILY 09/23/21 [History] Follow up Appointment(s)/Referral(s): Marc Calderon DO [Primary Care Provider] - 1-2 days Clover Freeman MD [REFERRING] - 1 Week Patient Instructions/Handouts: Syncope (DC) Activity/Diet/Wound Care/Special Instructions: Activity: As tolerated. Take breaks as needed. Diet: Heart healthy and carb consistent diet. Avoid salts, or foods with hidden salts such as canned or boxed foods and frozen dinners. Extra salt makes your heart work harder and traps the fluid in your body for longer. Special Instructions: Take all of your medications as directed and remember to keep all of your doctor's appointments and follow-up as needed. As we discussed, it is [place] state law stating no driving until seizure free for 6 months. It is also important to avoid climbing ladders, operating dangero us or heavy machinery or unsupervised swimming until seizure free for 6 months. Your EEG was concerning for possible underlying seizure disorder. You have declined to be placed on seizure medications at this time pending further workup by your neurologist, Dr. Mora. It is highly recommended that you undergo epilepsy monitoring with monitoring unit as an outpatient for 1-2 weeks to possibly capture these episodes. Please discuss this with your neurologist on your follow up appointment. Thank you for allowing us to participate in your care, it was truly a pleasure having you for our patient!!! Discharge Disposition: HOME SELF-CARE
== END 2021-09-24 16:23 | disposition home or self-care (01) ==
LOC: EC 13:14 → 6NMEDSUR 16:22
PROVIDERS: ADMIT Internal Medicine; ATTEND Internal Medicine
DX: R55 Syncope and collapse (principal); G40.909 Epilepsy, unspecified, not intractable, without status epilepticus; F32.A Depression, unspecified; F43.10 Post-traumatic stress disorder, unspecified; F50.9 Eating disorder, unspecified; E66.01 Morbid (severe) obesity due to excess calories; Z68.43 Body mass index [BMI] 50.0-59.9, adult; D72.829 Elevated white blood cell count, unspecified; R79.89 Other specified abnormal findings of blood chemistry; R53.1 Weakness; R53.83 Other fatigue; J45.909 Unspecified asthma, uncomplicated; I44.5 Left posterior fascicular block; I51.7 Cardiomegaly; R00.0 Tachycardia, unspecified; R74.8 Abnormal levels of other serum enzymes; R94.01 Abnormal electroencephalogram [EEG]; Z88.5 Allergy status to narcotic agent; Z91.048 Other nonmedicinal substance allergy status; Z71.3 Dietary counseling and surveillance; Z86.69 Personal history of other diseases of the nervous system and sense organs; Z86.59 Personal history of other mental and behavioral disorders; Z83.3 Family history of diabetes mellitus
CPT/HCPCS: 99285; 96360; 36415; 95819; 93005; 93306; 85379; 80053 ×2; 83605; 83735; 84484; 85025 ×2; 85610; 85730; 81001; 84146; 71275; G0378 ×2; Q9950; Q9967

== ENCOUNTER → 2021-11-03 | Outpatient (CLI) | payer BC, OTHER | END | disposition home or self-care (01) | LOC: LABWHC1 07:37 | PROVIDERS: ATTEND Psychiatry & Neurology Neurology | DX: G43.009 Migraine without aura, not intractable, without status migrainosus (principal); G93.2 Benign intracranial hypertension | CPT/HCPCS: 36415; 80177 ==

== ENCOUNTER → 2023-03-22 | Outpatient (CLI) | payer BC ==
--- NOTE | 2023-03-22 10:13 | XR ---
EXAMINATION TYPE: XR chest 2V DATE OF EXAM: 03/22/2023 10:05 AM CLINICAL INDICATION:Female, 28 years old with history of J18.9 pneumonia; COMPARISON: Chest radiographs from 01/07/2016 TECHNIQUE: XR chest 2V Frontal and lateral views of the chest. FINDINGS: Lungs/Pleura: There is no evidence of pleural effusion, focal consolidation, or pneumothorax. Pulmonary vascularity: Unremarkable. Heart/mediastinum: Cardiomediastinal silhouette is unremarkable. Musculoskeletal: No acute osseous pathology. Other findings: None IMPRESSION: No acute cardiopulmonary disease/process.
== END | disposition home or self-care (01) ==
LOC: RADXRMAIN 09:52
PROVIDERS: ATTEND Family Medicine
DX: J18.9 Pneumonia, unspecified organism (principal)
CPT/HCPCS: 71046

== ENCOUNTER 2023-12-10 19:40 | Emergency (ER) | payer BC ==
--- NOTE | 2024-01-03 15:47 | CT ---
EXAM: CT Abdomen and Pelvis With Intravenous Contrast CLINICAL HISTORY: rlq pain TECHNIQUE: Axial computed tomography images of the abdomen and pelvis with intravenous contrast. CTDI is 70.8 mGy and DLP is 3622.9 mGy-cm. This CT exam was performed using one or more of the following dose reduction techniques: automated exposure control, adjustment of the mA and/or kV according to patient size, and/or use of iterative reconstruction technique. Sagittal reformatted images were created and reviewed. 843 m COMPARISON: No relevant prior studies available. FINDINGS: Lung bases:Unremarkable. No mass. No consolidation. ABDOMEN: Liver:Hepatomegaly. No mass. Gallbladder and bile ducts:Unremarkable. No calcified stones. No ductal dilation. Pancreas:Unremarkable. No mass. No ductal dilation. Spleen:Unremarkable. No splenomegaly. Adrenals:Unremarkable. No mass. Kidneys and ureters: 9 mm cyst in the lower pole of left kidney, too small to characterize. No hydronephrosis. Stomach and bowel:Unremarkable. No obstruction. No mucosal thickening. PELVIS: Appendix:Normal appendix. Bladder:Unremarkable. No mass. Reproductive:Unremarkable as visualized. ABDOMEN and PELVIS: Intraperitoneal space:Unremarkable. No free air. No significant fluid collection. Bones/joints:No acute findings. Soft tissues:Unremarkable. Vasculature:Unremarkable. No abdominal aortic aneurysm. Lymph nodes:Unremarkable. No enlarged lymph nodes. IMPRESSION: No acute findings in the abdomen or pelvis. Radiologist: Gianluca Cartagena M.D. Electronically Signed: 12/11/23 04:15 Study ready at 00:16 and initial results transmitted at 04:15 [facility]
== END 2023-12-11 03:40 | disposition home or self-care (01) ==
LOC: EC 19:40
DX: R10.9 Unspecified abdominal pain (principal)
CPT/HCPCS: 74177; 99283